=== PATIENT | male | born 1955 | race Caucasian/White ===

== ENCOUNTER 2020-09-01 22:58 | Inpatient (IN) | payer OTHER ==
[~2020-09-01] VITALS: Ht 175.3 cm; Wt 83.0 kg
--- NOTE | 2020-09-01 22:58 | NUR ---
PT BIBA TO BED 10.
[2020-09-01 23:00] VITALS: BP 141/53
--- NOTE | 2020-09-01 23:00 | NUR ---
65 Y/O MALE WITH A TRACH [place]SP[place] [facility] [place] PRESENTS TO THE ED WITH SOB. PT AGITATED. AOX2. INCREASED RR. PT O2 SATURATION AT 94% ON 15L OF O2 VIA NC BUT DESATS TO 90% ON 15L WHEN AGITATED. PT HAS A G-TUBE. SKIN IS PINK/WARM/DRY; HOB ELEVATED; BEDRAILS UP X2; BED DOWN. ER MD MADE AWARE OF PT STATUS. PMH: RESPIRATORY FAILURE, HTN, SEIZURE, DM2, HDL, TIA, SCHIZOPHRENIA ALLERGIES: NKA
[2020-09-01 23:41] LABS: BASOPHILS % (AUTO) 0.4 % (0.0-2.0); HEMATOCRIT 36.2 % (36-52); HEMOGLOBIN 11.8 g/dL (12.0-18.0); LYMPHOCYTES # (AUTO) 3.6 K/uL (2.0-11.5); LYMPHOCYTES % (AUTO) 46.1 % (20.5-51.1); MEAN CORPUSCULAR HEMOGLOBIN 28 pg (27-31); MEAN CORPUSCULAR HGB CONC 32 g/dL (33-37); MEAN CORPUSCULAR VOLUME 87.1 fL (80-94); MONOCYTES # (AUTO) 0.6 K/uL (0.8-1.0); MONOCYTES % (AUTO) 8.2 % (1.7-9.3); NEUTROPHILS # (AUTO) 3.6 K/uL (1.8-7.7); NEUTROPHILS % (AUTO) 45.3 % (42.2-75.2); PLATELET COUNT (AUTO) 210 K/uL (140-450); RED BLOOD CELL COUNT(AUTO) 4.16 MIL/uL (4.20-6.10); RED CELL DISTRIBUTION WIDTH 17.3 % (11.6-13.7); WHITE BLOOD COUNT (AUTO) 7.8 K/uL (4.8-10.8)
[2020-09-01 23:57] LABS: ALBUMIN 2.9 g/dL (3.4-5.0); CREATININE 0.8 mg/dL (0.6-1.3); TOTAL BILIRUBIN 0.2 mg/dL (0.0-1.0)
--- NOTE | 2020-09-02 00:15 | NUR ---
CRITICAL LAB VALUE LACTIC ACID 3.[address] FONG GAVE NO NEW ORDERS.
--- NOTE | 2020-09-02 00:23 | NUR ---
20 G IV SITE ESTABLISHED TO L WRIST. IV SITE WAS PATENT FLSUHED WITH 10 ML OF 0.9% NS. NO REDNESS, SWELLING OR DISCOMFORT NOTED.
--- NOTE | 2020-09-02 01:09 | NUR ---
PT WAS CHANGED AND REPOSITION AT THIS TIME. TOLERATED WELL.
--- NOTE | 2020-09-02 01:51 | NUR ---
LORENZA SWAB COLLECTED AT THIS TIME, WALKED TO LAB AND GIVEN TO CINDI LEONARD.
--- NOTE | 2020-09-02 01:53 | NUR ---
STRAIGHT CATH PT USING STERILE TECHNIQUE PER ER MD ORDERS. COLLECTED 60 ML OF CLOUDY YELLOW URINE. TOLERATED PROCEDURE WELL.
[2020-09-02 01:55] LABS: BILIRUBIN,URINE NEGATIVE (NEGATIVE); BLOOD, URINE 1+ (NEGATIVE); COLOR,URINE YELLOW (YELLOW); LEUKOCYTE ESTERASE ,URINE TRACE (NEGATIVE); NITRITE, URINE POSITIVE (NEGATIVE); PH,URINE 7.5 (5.0-9.0); UGLUCOSE NEGATIVE (NEGATIVE)
[2020-09-02 02:08] LABS: APPEARANCE,URINE SLIGHTLY HAZY (CLEAR)
[2020-09-02 02:09] LABS: RBC,URINE 11-20 (MOD) /HPF (0-5)
--- NOTE | 2020-09-02 02:14 | NUR ---
PT LAYING IN BED IN NO ACUTE DISTRESS NOTED ON 15 L OF OXYGEN VIA TRACH COLLAR. O2 SAT AT 96%.
[2020-09-02] MEDS ORDERED: OLAN2.5T1 PO (02:27)
[2020-09-02] MEDS ORDERED: INSU100S5 IJ (02:27)
[2020-09-02] MEDS ORDERED: LISI-487 GT (02:27)
[2020-09-02] MEDS ORDERED: ASCO500T95 GT (02:27)
[2020-09-02] MEDS ORDERED: OLAN2.5T1 GT (02:27)
[2020-09-02] MEDS ORDERED: KEP500L GT (02:27)
[2020-09-02] MEDS ORDERED: VALP-22 GT (02:27)
[2020-09-02] MEDS ORDERED: ATOR20TA GT (02:31)
[2020-09-02] MEDS ORDERED: LEVO0.155 GT (02:31)
[2020-09-02] MEDS ORDERED: ASPI-1884 GT (02:31)
--- NOTE | 2020-09-02 02:31 | NUR ---
MED[place] [facility] [place]
--- NOTE | 2020-09-02 03:09 | NUR ---
PT WAS CHANGED AND REPOSITION AT THIS TIME. TOLERATED WELL.
--- NOTE | 2020-09-02 03:57 | NUR ---
Patient will be admitted to care of DR. OWEN. Admited to TELEMETRY. Will go to room 123B. Belongings list completed. Report called to Darcy COBIAN.
--- NOTE | 2020-09-02 04:55 | NUR ---
RECEIVED REPORT FROM ER NURSE, TRINI. PT AOX2, VERBAL, CONFUSED, SCREAMING. HAS TRACH COLLAR CONNECTED TO 12L O2. NO S/S RESPIRATORY DISTRESS. IV SITE 20G L WRIST PATENT INTACT. BOWEL SOUNDS ACTIVE. LUNGS CLEAR. SKIN WARM DRY INTACT. BLACKENED TOENAILS TO BIG TOE ON LEFT FOOT AND 5TH DIGIT ON RIGHT FOOT. HAS GTUBE IN PLACE. VS: O2 SAT 93% HR 92 TEMP 99.1 RR 24 BP 154/68. DX HYPOXIA, ELEVATED TROPONIN. HX HTN, DM, CVA, HLD, SZ, THYROID DZ, RESP. FAILURE, SCHIZO. ORIENTED TO ROOM AND HOSPITAL. SAFETY MEASURES IN PLACE. CALL LIGHT WITHIN REACH. WILL CONTINUE TO MONITOR
[2020-09-02 05:00] VITALS: BP 154/68
--- NOTE | 2020-09-02 05:00 | NUR ---
PATIENT CONTINUOUSLY SCREAMING. REORIENTED PATIENT AND REASSURED PATIENT. APPEARS MORE CALM. NO S/S ACUTE DISTRESS NOTED. SAFETY MEASURES IN PLACE, SEIZURE PRECAUTION IN PLACE. CALL LIGHT WITHIN REACH. WILL CONTINUE TO MONITOR
--- NOTE | 2020-09-02 07:40 | NUR ---
ENDORSED PATIENT TO DAY RN FOR CONTINUITY OF CARE. PATIENT IS IN STABLE CONDITION
--- NOTE | 2020-09-02 07:41 | NUR ---
RECEIVED REPORT FROM DIE FITTER NURSE. PATIENT IN STABLE CONDITION.
[2020-09-02 08:00] VITALS: BP 124/55
[2020-09-02] MEDS ORDERED: HYDROcodone/APAP 7.5/325 MG 1 TAB PO PRN (08:50)
[2020-09-02] MEDS ORDERED: INSULIN LISPRO SLIDING SCALE 100 UNITS/ML VIAL SUBQ PRN (08:50)
[2020-09-02] MEDS ORDERED: ONDANSETRON 4 MG/2 ML VIAL IM/IVP PRN (08:50)
[2020-09-02] MEDS ORDERED: ACETAMINOPHEN 325 MG TAB PO PRN (08:50)
[2020-09-02] MEDS ORDERED: DOCUSATE SODIUM 100 MG GELCAP PO PRN (08:50)
[2020-09-02] MEDS ORDERED: POTASSIUM CHLORIDE 10 MEQ TABER PO PRN (08:50)
[2020-09-02] MEDS ORDERED: LEVOTHYROXINE 0.075 MG TAB GT SCH (09:00)
[2020-09-02] MEDS: VALPROIC ACID 250 MG/5 ML UDC GT SCH ×3 (09:19→16:31)
[2020-09-02] MEDS: OLANZapine 2.5 MG TAB PO SCH (09:22)
[2020-09-02] MEDS: ASCORBIC ACID 500 MG TAB GT SCH ×2 (09:23→20:51)
[2020-09-02] MEDS: lisinopriL 20 MG TAB GT SCH (09:28)
[2020-09-02] MEDS: ASPIRIN 81 MG TAB.CHEW GT SCH (09:28)
[2020-09-02] MEDS: levETIRAcetam 100 MG/ML ORASYR GT SCH ×2 (09:29→20:51)
[2020-09-02 09:33] LABS: PROTHROMBIN TIME 9.9 secs (10.8-13.4)
[2020-09-02 09:44] LABS: CHOL/HDL RATIO 3.5 (1-4.5); FREE T4 (FREE THYROXINE) 1.03 ng/dL (0.76-1.46); MAGNESIUM 1.7 mg/dL (1.8-2.4); PHOSPHORUS 1.7 mg/dL (2.5-4.9); THYROID STIMULATING HORMONE 5.56 uIU/mL (0.34-3.74)
--- NOTE | 2020-09-02 10:00 | NUR ---
SCHEDULED MEDICATIONS DUE GIVEN. WILL CONTINUE TO MONITOR.
[2020-09-02 12:00] VITALS: BP 132/58
--- NOTE | 2020-09-02 13:56 | NUR ---
SCHEDULED MEDICATIONS DUE GIVEN. WILL CONTINUE TO MONITOR.
[2020-09-02 16:00] VITALS: BP 145/68
--- NOTE | 2020-09-02 16:31 | NUR ---
SCHEDULED MEDICATIONS DUE GIVEN. WILL CONTINUE TO MONITOR.
--- NOTE | 2020-09-02 19:20 | NUR ---
GAVE REPORT TO WEB SEARCH EVALUATOR NURSE FOR CONTINUITY OF CARE. PATIENT IN STABLE CONDITION.
--- NOTE | 2020-09-02 19:22 | NUR ---
RECEIVED REPORT FROM TYLER ZACARIAS. PT SLEEPING IN BED ON 12L TRACH COLLAR TO TPIECE. NO S/S RESPIRATORY DISTRESS. IV SITE L WRIST 20G PATENT INTACT, S.L. G TUBE IN PLACE, PATENT INTACT. SAFETY MEASURES IN PLACE. CALL LIGHT WITHIN REACH. WILL CONTINUE TO MONITOR
[2020-09-02 20:00] VITALS: BP 120/67
[2020-09-02] MEDS ORDERED: DEXTROSE 50% 50 ML SYR IVP PRN (20:05)
[2020-09-02] MEDS: BLOOD GLUCOSE MONITORING 1 DEV DEV FS SCH (20:48)
[2020-09-02] MEDS: ATORVASTATIN 20 MG TAB GT SCH (20:51)
[2020-09-02] MEDS: OLANZapine 2.5 MG TAB GT SCH (20:52)
--- NOTE | 2020-09-02 21:03 | NUR ---
GTUBE RESIDUAL LESS THAN 10ML. ADMINISTERED SCHEDULED MEDICATIONS PER MD ORDERS. NO DISTRESS NOTED. SAFETY MEASURES IN PLACE. CALL LIGHT WITHIN REACH. WILL CONTINUE TO MONITOR
--- NOTE | 2020-09-02 22:45 | NUR ---
PATIENT ASLEEP IN BED. NO S/S ACUTE DISTRESS NOTED. CALL LIGHT WITHIN REACH. WILL CONTINUE TO MONITOR
[2020-09-03] VITALS: BP 146/59
--- NOTE | 2020-09-03 00:20 | NUR ---
CLEANED CHANGED REPOSITIONED PATIENT, HAD ONE MODERATE SOFT FORMED YELLOW-GREEN BOWEL MOVEMENT. TOLERATED WELL. NO DISTRESS NOTED. SAFETY MEASURES IN PLACE. CALL LIGHT WITHIN REACH. WILL CONTINUE TO MONITOR
--- NOTE | 2020-09-03 01:09 | NUR ---
PATIENT RESTING IN BED. DENIES DISCOMFORT, DENIES PAIN. RESPIRATIONS EVEN UNLABORED, NO S/S ACUTE DISTRESS NOTED. CALL LIGHT WITHIN REACH. WILL CONTINUE TO MONITOR
[2020-09-03 04:00] VITALS: BP 154/74
--- NOTE | 2020-09-03 05:00 | NUR ---
CLEANED CHANGED REPOSITIONED PATIENT, HAD ONE LARGE FORMED HARD LIGHT BROWN BOWEL MOVEMENT. TOLERATED WELL. NO DISTRESS NOTED. SAFETY MEASURES IN PLACE. CALL LIGHT WITHIN REACH. WILL CONTINUE TO MONITOR
[2020-09-03] MEDS: LEVOTHYROXINE 0.075 MG TAB GT SCH (05:50)
[2020-09-03 05:58] LABS: BASOPHILS % (AUTO) 0.3 % (0.0-2.0); HEMATOCRIT 34.1 % (36-52); HEMOGLOBIN 11.1 g/dL (12.0-18.0); LYMPHOCYTES # (AUTO) 3.1 K/uL (2.0-11.5); LYMPHOCYTES % (AUTO) 39.9 % (20.5-51.1); MEAN CORPUSCULAR HEMOGLOBIN 29 pg (27-31); MEAN CORPUSCULAR HGB CONC 33 g/dL (33-37); MEAN CORPUSCULAR VOLUME 87.3 fL (80-94); MONOCYTES # (AUTO) 0.7 K/uL (0.8-1.0); MONOCYTES % (AUTO) 8.8 % (1.7-9.3); NEUTROPHILS # (AUTO) 3.9 K/uL (1.8-7.7); PLATELET COUNT (AUTO) 165 K/uL (140-450); RED BLOOD CELL COUNT(AUTO) 3.91 MIL/uL (4.20-6.10); RED CELL DISTRIBUTION WIDTH 17.3 % (11.6-13.7); WHITE BLOOD COUNT (AUTO) 7.7 K/uL (4.8-10.8)
[2020-09-03] MEDS: BLOOD GLUCOSE MONITORING 1 DEV DEV FS SCH ×4 (06:01→20:42)
--- NOTE | 2020-09-03 06:02 | NUR ---
ADMINISTERED SCHEDULED MEDICATION. BLOOD SUGAR 101, NO INSULIN COVERAGE NEEDED PER SLIDING SCALE. NO DISTRESS NOTED. SAFETY MEASURES IN PLACE. CALL LIGHT WITHIN REACH. WILL CONTINUE TO MONITOR
[2020-09-03 06:54] LABS: ANION GAP 8.1 (8-16); CARBON DIOXIDE 34.9 mmol/L (21-32); CREATININE 0.6 mg/dL (0.6-1.3)
[2020-09-03 07:06] LABS: T4 (THYROXINE) 10.2 ug/dL (4.5-12.0)
--- NOTE | 2020-09-03 07:20 | NUR ---
ENDORSED PATIENT TO DAY RN FOR CONTINUITY OF CARE. PATIENT IS IN STABLE CONDITION
--- NOTE | 2020-09-03 07:21 | NUR ---
RECEIVED ENDORSEMENT FROM PLATEN DRIER OPERATOR RN FOR CONTINUITY OF CARE. PT IS STABLE RESTING WITH EYES CLOSED. SPO2 90% ON 12L TRACH COLLAR. PER PLATEN DRIER OPERATOR RN 90% BASELINE
[2020-09-03 08:00] VITALS: BP 159/66
--- NOTE | 2020-09-03 08:21 | NUR ---
PATIENT HAS BEEN SCREENED AND CATEGORIZED HIGH NUTRITION RISK. PATIENT WILL BE SEEN WITHIN 1-2 DAYS OF ADMISSION. 09/02/20 - 09/03/20 MARGUERITE BUCIO MBA, RD
--- NOTE | 2020-09-03 09:00 | NUR ---
SCHEDULED MEDICATION GIVEN VIA GT. TOLERATED WELL. PT WAS ASSISTED WITH FEEDING HOWEVER DISLIKED FOOD. SUBSTITUTES WERE OFFERED AND REFUSED. PT IS ABLE TO COMMUNICATE FOR THE MOST PART, DIFFICULT TO UNDERSTAND AT TIMES. LUNG SOUNDS DIMINISHED. ABD IS FLAT, SOFT AND NONTENDER WITH ACTIVE BS. PT SUCTIONED NEEDED WILL FLUCTUATE FROM MID 80'S BACK UP TO MID 90'S. HOB ELEVATED ALL NEEDS MET AT THIS TIME. HAS IV ACCESS TO LEFT WRIST. WILL CONTINUE WITH POC.
[2020-09-03] MEDS: ASPIRIN 81 MG TAB.CHEW GT SCH (09:06)
[2020-09-03] MEDS: VALPROIC ACID 250 MG/5 ML UDC GT SCH ×3 (09:07→16:38)
[2020-09-03] MEDS: ASCORBIC ACID 500 MG TAB GT SCH ×2 (09:07→20:32)
[2020-09-03] MEDS: levETIRAcetam 100 MG/ML ORASYR GT SCH ×2 (09:07→20:32)
[2020-09-03] MEDS: OLANZapine 2.5 MG TAB PO SCH (09:08)
[2020-09-03] MEDS: lisinopriL 20 MG TAB GT SCH (09:08)
[2020-09-03] MEDS: POTASSIUM CHLORIDE 20% 40 MEQ/15 ML UDC GT PRN (10:14)
--- NOTE | 2020-09-03 10:15 | NUR ---
RECEIVED PHONE CALL FROM RADIOLOGY REGARDING IV ACCESS FOR CONTRAST ACCORDING TO DEPARTMENT THEY NEED A 20G IV ACCESS TO AC AND PATIENT CURRENTLY HAS 20G TO WRIST. NEW IV ACCESS STARTED TO RIGHT AC 20G. AND GIVEN POTASSIUM SUPPLEMENT FOR LOW K. TOLERATED WELL.
--- NOTE | 2020-09-03 11:55 | NUR ---
PT PICKED UP BY RADIOLOGY DEPARTMENT FOR CT. PT IS AWAKE REMAINS ON 12 L TRACH COLLAR TRANSPORTED WITH RT. HAND OFF REPORT GIVEN . Addendum: 09/03/20 at 1233 by Svetlana Bauman RN PROVISION OF CARE PROVIDED PRIOR TO ROLLER SKATE REPAIRER
[2020-09-03 12:00] VITALS: BP 129/62
--- NOTE | 2020-09-03 12:32 | NUR ---
PT RETURNED FROM CT AT 1215 PT IS AWAKE NO CHANGES IN ASSESSMENT. BS 97 NO COVERAGE NEEDED. SCHEDULED MEDICATION GIVEN TOLERATED WELL ALL NEEDS MET.
--- NOTE | 2020-09-03 13:28 | NUR ---
09/03/20 RD INITIAL ASSESSMENT COMPLETED. PLEASE REFER TO NUTRITION ASSESSMENT UNDER CARE ACTIVITY FOR ESTIMATED NUTRITIONAL NEEDS. RD RECOMMENDATIONS : 1. RECOMMEND CONTINUE CARDIAC MECHANICAL SOFT DIET 2. ADD DIET HEALTHSHAKES TID WITH MEALS (TO HELP MEET ESTIMATED ENERGY & PROTEIN NEEDS) 3. ENCOURAGE INCREASED PO INTAKE 4. F/UP 2-3 DAYS; HIGH RISK MARGUERITE BUCIO MBA, RD
--- NOTE | 2020-09-03 14:25 | NUR ---
RESTING IN BED WITH EYES CLOSED SPO2 93%
[2020-09-03 16:00] VITALS: BP 134/54
--- NOTE | 2020-09-03 16:34 | NUR ---
BS 119 NO COVERAGE NEEDED, SCHEDULE MEDICATION GIVEN WITH NO ISSUES. RESTING IN BED CONTINUES TO GET SUCTIONED PRN.
--- NOTE | 2020-09-03 18:14 | NUR ---
RESTING IN BED WITH EYES CLOSED REMAINS ON TRACH COLLAR 12L SPO2 92%
--- NOTE | 2020-09-03 19:18 | NUR ---
PT ENDORSED TO GOLF COURSE PATROLLER RN FOR CONTINUITY OF CARE. PT IS STABLE. REMAINS ON 12L TRACH COLLAR SPO2 93% AT THIS TIME. IN NO DISTRESS. POC DISCUSSED.
[2020-09-03 20:00] VITALS: BP 159/77
[2020-09-03] MEDS: ATORVASTATIN 20 MG TAB GT SCH (20:31)
[2020-09-03] MEDS: OLANZapine 2.5 MG TAB GT SCH (20:31)
[2020-09-03] MEDS ORDERED: CRUSHER, PILL MC ONE (20:33)
[2020-09-04] VITALS: BP 124/65
[2020-09-04 04:00] VITALS: BP 145/84
[2020-09-04] MEDS: LEVOTHYROXINE 0.075 MG TAB GT SCH (05:33)
--- NOTE | 2020-09-04 05:48 | NUR ---
ADMINISTERED 0630H MEDICATION PER ORDERED
[2020-09-04 05:54] LABS: ANION GAP 8.6 (8-16); CARBON DIOXIDE 33.6 mmol/L (21-32); CREATININE 0.6 mg/dL (0.6-1.3); POTASSIUM 3.2 mmol/L (3.5-5.1)
[2020-09-04 06:06] LABS: BASOPHILS # (AUTO) 0.1 K/uL (0.00-0.22); BASOPHILS % (AUTO) 0.7 % (0.0-2.0); HEMATOCRIT 34.1 % (36-52); LYMPHOCYTES # (AUTO) 3.2 K/uL (2.0-11.5); LYMPHOCYTES % (AUTO) 41.5 % (20.5-51.1); MEAN CORPUSCULAR HEMOGLOBIN 29 pg (27-31); MEAN CORPUSCULAR HGB CONC 32 g/dL (33-37); MEAN CORPUSCULAR VOLUME 88.2 fL (80-94); MONOCYTES # (AUTO) 0.8 K/uL (0.8-1.0); MONOCYTES % (AUTO) 9.9 % (1.7-9.3); NEUTROPHILS # (AUTO) 3.7 K/uL (1.8-7.7); NEUTROPHILS % (AUTO) 47.9 % (42.2-75.2); PLATELET COUNT (AUTO) 159 K/uL (140-450); RED BLOOD CELL COUNT(AUTO) 3.87 MIL/uL (4.20-6.10); RED CELL DISTRIBUTION WIDTH 17.6 % (11.6-13.7); WHITE BLOOD COUNT (AUTO) 7.6 K/uL (4.8-10.8)
[2020-09-04] MEDS: BLOOD GLUCOSE MONITORING 1 DEV DEV FS SCH ×4 (06:31→21:06)
--- NOTE | 2020-09-04 06:31 | NUR ---
BLOOD GLUCOSE 95
--- NOTE | 2020-09-04 07:25 | NUR ---
RECEIVED BEDSIDE REPORT FROM WALL TAPER HELPER NURSE. PATIENT SUPINE IN BED, ALERT, ANSWERS TO NAME. BREATHING EVEN AND UNLABORED, NO SINGS OF ACUTE DISTRESS NOTED. SPO2 94%, ON AEROSOL DIFFUSER 12 L, FIO2 55%. G TUBE IN PLACE, FOR MEDICATIONS. PATIENT ON MECHANICAL SOFT CARDIAC DIET. DIAPER IN PLACE FOR INCONTINENCE. L WRIST 20G, R AC 20G INFUSING NS @ 10 ML/HR. PLOWING GARDENS IN PLACE, SAFETY MEASURES IN PLACE.
--- NOTE | 2020-09-04 07:25 | NUR ---
ENDORSED TO DAY SHIFT RN FOR CONTINUITY OF CARE
[2020-09-04 08:00] VITALS: BP 153/63
--- NOTE | 2020-09-04 08:42 | NUR ---
PT. WITH LOW AFUA SCALE AT HIGH RISK, CONTINUE TO FOLLOW PRESSURE INJURY PREVENTION INTERVENTIONS. -TURN AND REPOSITION PATIENT Q 2H -ASSESS AND MONITOR SKIN CONDITION DURING POSITION CHANGE -OFFLOAD BILATERAL HEELS BY PLACING PILLOWS UNDER CALVES AT ALL TIMES, UNLESS OTHERWISE CONTRAINDICATED -PRESSURE REDISTRIBUTION BY PLACING PILLOWS AND OFFLOADING SACRALCOCCYX -KEEP SKIN CLEAN AND DRY AT ALL TIMES.
[2020-09-04] MEDS: ASPIRIN 81 MG TAB.CHEW GT SCH (08:54)
[2020-09-04] MEDS: VALPROIC ACID 250 MG/5 ML UDC GT SCH ×3 (08:54→17:03)
[2020-09-04] MEDS: ASCORBIC ACID 500 MG TAB GT SCH ×2 (08:55→21:05)
[2020-09-04] MEDS: lisinopriL 20 MG TAB GT SCH (08:56)
[2020-09-04] MEDS: OLANZapine 2.5 MG TAB PO SCH (08:56)
[2020-09-04] MEDS: levETIRAcetam 100 MG/ML ORASYR GT SCH ×2 (09:05→21:05)
--- NOTE | 2020-09-04 09:05 | NUR ---
ADMINISTERED SCHEDULED AM MEDS PER MD ORDER. MED EDUCATION PROVIDED, REINFORCEMENT NEEDED. G TUBE RESIDUAL 5 ML, FLUSHED BEFORE AND AFTER MEDS. OVEN BUILDER IN PLACE, SAFETY MEASURES IN PLACE.
[2020-09-04] MEDS: POTASSIUM CHLORIDE 20% 40 MEQ/15 ML UDC GT PRN (09:14)
--- NOTE | 2020-09-04 10:48 | NUR ---
SOCIAL WORK NOTE: Patient's Orientation Unable To Assess Information Provided By NORMA - PIERCE Comments SW WAS UNABLE TO MEET PATIENT AT BEDSIDE. SW CONTACTED PATIENT'S SISTER AND LEFT VM. SW COMPLET[place] ASSESSMENT [place] [facility] [place]. Tile Roofer, Realtionship and Phone Number HENRY MARCIAL SISTER [phone] STELLA ALVARADO [phone] Healthcare Power of Cableman No Does Patient Have a POLST No Identifying Problems No Social Work Triggers Is A Social Work Consult Needed No Mandate Report Filed No Explanation Of Identifying Problems PATIENT IS A 65-YEAR-OLD MALE ADMITTED FOR HYPOXIA AND ELEVATED TROP. PATIENT HAS PMHX OF CEREBROVASCULAR ACCIDE, DIABETES, HYPERTENSION, SEIZURE, AND THYROID DISEASE. Admitted From [facility] Facility [facility] - [phone] Pre-Admission Level Of Functioning Status Total Care Level Of Functioning Comment NORMA STATED PATIENT REQUIRES TOTAL ASSISTANCE. Prior Resources/Services Used In Last 12 Months SNF [facility] Prior Resources/Service Comments PER NORMA, PATIENT IS PENITENTIARY AND ON A BED HOLD. Prior DME Wheelchair Dialysis Comments N/A Patient Had Caregiver No Home Support No Caregiver Issues Financial Issues No Known Financial Issue Referral To The Financial Counselor Needed No Factors/Needs No D/C Needs Identified Pt/Rep Participated In Discharge Plan Yes Patient/Family Agress With Discharge Plan Yes Discharge Plan Comments TENTATIVE DISCHARGE PLAN IS FOR PATIENT TO RETURN HOME. DC Plan Status Initiated
[2020-09-04] MEDS: LORazepam 2 MG/ML VIAL IM/IVP PRN (11:07)
--- NOTE | 2020-09-04 11:10 | NUR ---
PRN ATIVAN ADMINISTERED PER MD ORDER FOR PATIENT AGITATION. MED EDUCATION PROVIDED, REINFORCEMENT NEEDED. REHAB THERAPY MANAGER AT BEDSIDE PROVIDING HYGIENE CARE AT THIS TIME.
--- NOTE | 2020-09-04 11:20 | NUR ---
PATIENT REPOSITIONED AND OFFLOADED PRESSURE WITH PILLOWS, WITH FINANCE BROKER HELP. CHANGED ALL DIRTY LINEN. COIL CLEANER IN PLACE, SAFETY MEASURES IN PLACE.
--- NOTE | 2020-09-04 11:26 | NUR ---
BLOOD GLUCOSE CHECKED, 150, NO INSULIN COVERAGE NECESSARY. COMMUNICATIONS ADVISOR IN PLACE, SAFETY MEASURES IN PLACE.
[2020-09-04 12:00] VITALS: BP 138/64
--- NOTE | 2020-09-04 14:21 | NUR ---
ADMINISTERED SCHEDULED MEDS PER MD ORDER. MED EDUCATION PROVIDED, REINFORCEMENT NEEDED. G TUBE FLUSHED BEFORE AND AFTER MEDS. ANTIBIOTIC WITH ALL NEW TUBING SET UP. PATIENT REPOSITIONED AND OFFLOADED PRESSURE WITH PILLOWS. AQUATICS COORDINATOR IN PLACE. SAFETY MEASURES IN PLACE.
[2020-09-04 16:00] VITALS: BP 132/62
--- NOTE | 2020-09-04 16:13 | NUR ---
DC PLANNIN YRS OLD MALE PATIENT WAS ADMITTED FROM [facility] [place] WITH A DX OF HYPOXIA ELEVATED TROPONIN. PT HAS A HX OF DM, CVA, HTN, SEIZURE DISORDER, CHRONIC RESP FAILURE WITH TRACH IN PLACE AND SCHIZOPHRENIA.CXRAY SHOWED NO ACUTE CARDIOPULMONARY DISEASE . RAPID COVID TEST NEGATIVE. ADMINISTERED IVF, IV ABX AND CONTINUED HOME MEDS. CONSULTED WITH [facility] DIRECTOR FOR ELEVATED TROPONIN, PULMO AND PSYCH DR HIGH FOR SCHIZOPHRENIA. DC PLAN TO GO BACK TO [facility] [place] WHEN STABLE CM TO FOLLOW Addendum: 09/06/20 at 1041 by Helena Fiore CM DC MAORI PHYSIOTHERAPIST: PATIENT WILL DC BACK TO [facility] [place] TODAY. FAXED PATIENTS PACKET, PENDING BED NUMBER. SET UP WILL CALL TRANSPORTATION WITH [facility] [phone]. WILL ACTIVATE ONCE I HAVE THE BED NUMBER. CALLED PATIENTS SISTER HENRY MARCIAL [phone] TO NOTIFY HER THAT PATIENT WILL DC BACK TO [facility] [place] TODAY AND DISCUSSED RIGHTS OF MEDICARE. Addendum: 09/06/20 at 1415 by Helena Fiore CM AMANDA MAORI PHYSIOTHERAPIST [facility] WAS NOT ABLE TO TRANSPORT PATIENT. ARRANGED TRANSPORTATION WITH [facility] FOR 6:00 PM. NOTIFIED MANGO BARRY AND EROS AT [facility]
--- NOTE | 2020-09-04 17:00 | NUR ---
BLOOD GLUCOSE CHECKED, 140, NO INSULIN COVERAGE NECESSARY.
--- NOTE | 2020-09-04 17:06 | NUR ---
ADMINISTERED SCHEDULED MEDS PER MD ORDER. MED EDUCATION PROVIDED, REINFORCEMENT NEEDED. G TUBE FLUSHED BEFORE AND AFTER MEDS. PATIENT REORIENTED, REPOSITIONED AND OFFLOADED PRESSURE WITH PILLOWS. LUBRICATION TECHNICIAN IN PLACE. SAFETY MEASURES IN PLACE.
--- NOTE | 2020-09-04 19:11 | NUR ---
ENDORSED PATIENT TO SPECIAL CERTIFICATE DICTATOR NURSE FOR CONTINUITY OF CARE. PATIENT STABLE AT THIS TIME.
--- NOTE | 2020-09-04 19:12 | NUR ---
RECEIVING PATIENT FROM AM NURSE FOR CONTINUITY OF CARE. PATIENT IS ON TELE MONITOR. PATIENT IS AWAKE, ALERT TO NAME. RESPIRATORY EVEN AND UNLABORED, ON AEROSOL DIFFUSER 12L, FIO2 55%, O2 SAT 93%, NO SIGN OF DISTRESS NOTED. SKIN WARM, DRY, NON-DIAPHORETIC. IV ON LEFT WRIST 20G, RIGHT AC 20G TKO. G-TUBE IN PLACE, FOR MEDICATION ONLY. PATIENT ON MECHANICAL SOFT CARDIAC DIET. DIAPER IN PLACE FOR INCONTINENCE. PLAN OF CARE DISCUSS. PRECAUTION IN PLACE. HOB ELEVATED. CALL LIGHT WITHIN REACH. WILL CONTINUE TO MONITOR.
--- NOTE | 2020-09-04 19:45 | NUR ---
ENDORSED PATIENT TO VOICE OVER ANNOUNCER NURSE FOR CONTINUITY OF CARE. PATIENT STABLE AT THIS TIME. Addendum: 09/04/20 at 1945 by Lisa Zamora RN RN ENDORSEMENT DONE AT 1910.
[2020-09-04 20:00] VITALS: BP 138/75
[2020-09-04] MEDS: OLANZapine 2.5 MG TAB GT SCH (21:05)
[2020-09-04] MEDS: ATORVASTATIN 20 MG TAB GT SCH (21:05)
--- NOTE | 2020-09-04 21:06 | NUR ---
BLOOD SUGAR CHECK 93, NO INSULIN GIVEN. SCHEDULE MEDICATION GIVEN VIA G-TUBE, PATIENT EDUCATED. PRECAUTION IN PLACE. HOB ELEVATED. CALL LIGHT WITHIN REACH. WILL CONTINUE TO MONITOR.
--- NOTE | 2020-09-04 23:10 | NUR ---
EFFICIENCY ANALYST AT BEDSIDE TO CHANGE AND TURN PATIENT. PATIENT IS ANXIOUS. ABLE TO FOLLOW COMMANDS. NO SIGN OF DISTRESS NOTED. HOB ELEVATED. CALL LIGHT WITHIN REACH. WILL CONTINUE TO MONITOR.
[2020-09-05] VITALS: BP 151/66
--- NOTE | 2020-09-05 | NUR ---
ROUND CHECK. PATIENT IS SLEEPING, CHEST RISE AND FALL NOTED. NO SIGN OF RESPIRATORY DISTRESS, O2 SAT 96%. HOB ELEVATED. PRECAUTION IN PLACE. CALL LIGHT WITHIN REACH. WILL CONTINUE TO MONITOR.
--- NOTE | 2020-09-05 02:00 | NUR ---
ROUND CHECK. PATIENT IS SLEEPING, CHEST RISE AND FALL NOTED. NO SIGN OF DISTRESS NOTED. HOB ELEVATED. PRECAUTION IN PLACE. CALL LIGHT WITHIN REACH. WILL CONTINUE TO MONITOR.
[2020-09-05 04:00] VITALS: BP 132/81
--- NOTE | 2020-09-05 04:00 | NUR ---
ASSIST PAINTER MIRROR TO CHANGE AND RE-POSITION PATIENT. PATIENT TOLERATED WELL. NO SIGN OF DISTRESS NOTED. HOB ELEVATED. CALL LIGHT WITHIN REACH. WILL CONTINUE TO MONITOR.
[2020-09-05 05:57] LABS: BASOPHILS % (AUTO) 0.2 % (0.0-2.0); HEMATOCRIT 33.2 % (36-52); HEMOGLOBIN 10.7 g/dL (12.0-18.0); LYMPHOCYTES # (AUTO) 2.5 K/uL (2.0-11.5); MEAN CORPUSCULAR HEMOGLOBIN 29 pg (27-31); MEAN CORPUSCULAR HGB CONC 32 g/dL (33-37); MEAN CORPUSCULAR VOLUME 88.3 fL (80-94); MONOCYTES # (AUTO) 0.7 K/uL (0.8-1.0); MONOCYTES % (AUTO) 9.5 % (1.7-9.3); NEUTROPHILS # (AUTO) 4.4 K/uL (1.8-7.7); NEUTROPHILS % (AUTO) 57.3 % (42.2-75.2); PLATELET COUNT (AUTO) 147 K/uL (140-450); RED BLOOD CELL COUNT(AUTO) 3.76 MIL/uL (4.20-6.10); RED CELL DISTRIBUTION WIDTH 17.4 % (11.6-13.7); WHITE BLOOD COUNT (AUTO) 7.6 K/uL (4.8-10.8)
[2020-09-05 06:00] LABS: ANION GAP 5.1 (8-16); CARBON DIOXIDE 34.4 mmol/L (21-32); CREATININE 0.6 mg/dL (0.6-1.3); POTASSIUM 3.5 mmol/L (3.5-5.1)
[2020-09-05] MEDS: LEVOTHYROXINE 0.075 MG TAB GT SCH (06:18)
--- NOTE | 2020-09-05 06:18 | NUR ---
SCHEDULE MEDICATION GIVEN, EDUCATION GIVEN. PATIENT TOLERATED WELL. HOB ELEVATED. CALL LIGHT WITHIN REACH. WILL CONTINUE TO MONITOR.
[2020-09-05] MEDS: BLOOD GLUCOSE MONITORING 1 DEV DEV FS SCH ×4 (06:24→21:31)
--- NOTE | 2020-09-05 06:24 | NUR ---
BLOOD SUGAR CHECK 105. NO INSULIN COVER NEEDED.
--- NOTE | 2020-09-05 07:19 | NUR ---
ENDORSED PATIENT TO AM NURSE FOR CONTINUITY OF CARE. PATIENT IS STABLE.
--- NOTE | 2020-09-05 07:20 | NUR ---
RECEIVED PATIENT FROM NIGHT NURSE. PATIENT IN BED AWAKE, RESPONDING TO NAME. RESP EVEN AND UNLABORED ON TRACH TO 12L AEROSOL. NO NOTED DISTRESS AT THIS TIME. PATIENT ABLE TO EAT, FEEDER REQUIRES TO ASSIST WITH MEALS. REDIRECTING REQUIRES, PATIENT ABLE TO FOLLOW SIMPLE COMMANDS. LW 20TKO, RAC 20G SL. HOB ELEVATED. SAFETY MEASURES IN PLACE. CALL LIGHT WITHIN REACH. WILL CONTINUE TO MONITOR.
[2020-09-05 08:00] VITALS: BP 155/71
[2020-09-05] MEDS: levETIRAcetam 100 MG/ML ORASYR GT SCH ×2 (08:14→21:31)
[2020-09-05] MEDS: VALPROIC ACID 250 MG/5 ML UDC GT SCH ×3 (08:14→16:11)
[2020-09-05] MEDS: ASCORBIC ACID 500 MG TAB GT SCH ×2 (08:14→21:32)
[2020-09-05] MEDS: ASPIRIN 81 MG TAB.CHEW GT SCH (08:15)
[2020-09-05] MEDS: lisinopriL 20 MG TAB GT SCH (08:15)
[2020-09-05] MEDS: OLANZapine 2.5 MG TAB PO SCH (08:15)
--- NOTE | 2020-09-05 08:49 | NUR ---
MORNING ROUTINE MEDICATIONS GIVEN VIA GTUBE. RESIDUAL CHECK LESS THAN 10ML AT THIS TIME. PATIENT ABLE TO SWALLOW AND WAS ASSISTED WITH BREAKFAST BY SQL SERVER DEVELOPER. PATIENT TOLERATED WELL. NO NOTED ACUTE S/S DISTRESS AT THIS TIME. CALL LIGHT WITHIN REACH. WILL CONTINUE TO MONITOR.
--- NOTE | 2020-09-05 09:36 | NUR ---
CHANGED WATER BOTTLE AND PT IS SLEEPING WITH NO SIGNS OF DISTRESS NOTED AT THIS TIME
--- NOTE | 2020-09-05 10:28 | NUR ---
PATIENT IN BED AWAKE AND ALERT. RESP EVEN AND UNLABORED ON TRACH TO OXYGEN. NO ACUTE S/S DISTRESS. CALL LIGHT WITHIN REACH. WILL CONTINUE TO MONITOR.
[2020-09-05 12:00] VITALS: BP 153/71
--- NOTE | 2020-09-05 12:00 | NUR ---
BLOOD SUGAR 148, NO INSULIN COVERAGE PER SLIDING SCALE. PATIENT IN BED SLEEPING, CHEST NOTED RISING. NO ACUTE S/S DISTRESS. RESP EVEN AND UNLABORED ON TRACH TO OXY 12L. CALL LIGHT WITHIN REACH. WILL CONTINUE TO MONITOR.
[2020-09-05] MEDS ORDERED: MAG SULF 2000 MG/WATER PREMIX 50 ML IV SCH (14:30)
--- NOTE | 2020-09-05 14:56 | NUR ---
DR HO MADE AWARE OF POSITIVE URINE CULTURE SENSITIVITY. RECEIVED TELEPHONE ORDERS FOR PHYSICIAN CONSULT WITH DR LEONARD, AND GIVE LEVAQUIN 500MG IV DAILY. ORDERS READ BACK CONFIRMED AND CARRIED OUT. WILL CONTINUE TO MONITOR. Addendum: 09/05/20 at 1458 by Alexis Mcmillan RN DR LEONARD IN HOUSE MADE AWARE, RECEIVED ORDER TO D/C ELIZABETH. ORDER CARRIED OUT.
[2020-09-05] MEDS: LEVOFLOXACIN 500 MG/D5W PREMIX 100 ML IV SCH (15:55)
[2020-09-05 16:00] VITALS: BP 140/74
--- NOTE | 2020-09-05 16:23 | NUR ---
BLOOD SUGAR 148, NO INSULIN PROVIDED PER SLIDING SCALE. ROUTINE MEDICATION GIVEN. PATIENT TOLERATED WELL. RESP EVEN AND UNLABORED ON 12L TRACH TO OXY, O2SAT 96%. NO NOTED DISTRESS. CALL LIGHT WITHIN REACH. WILL CONTINUE TO MONITOR.
--- NOTE | 2020-09-05 17:44 | NUR ---
PATIENT IN BED SLEEPING, CHEST NOTED RISING. NO NOTED DISTRESS. CALL LIGHT WITHIN REACH. WILL CONTINUE TO MONITOR.
--- NOTE | 2020-09-05 19:25 | NUR ---
ENDORSED PATIENT TO NIGHT NURSE. PATIENT IN STABLE CONDITION.
[2020-09-05 20:00] VITALS: BP 122/63
--- NOTE | 2020-09-05 20:00 | NUR ---
RECEIVED PATIENT AWAKE, ALERT,ORIENTEDX2. PATIENT LAYING IN BED NOT IN ANY DISTRESS. PT HAS TRACH ON 12L OXYGEN,AND FiO2 60% COOL AEROSOL MIST WITH SPO2 OF 93%. PATIENT HAS WHITE THIN SECRETIONS, SUCTIONED NEEDED. OTHERWISE VSS, TEMP- 100.2, SATING 93% ON TRACH ON 12L /O2. SINUS TACHYCARDIA ON HONING MACHINE OPERATOR TOOL, HR-103. CALL LIGHT [facility] REACH. WILL CONTINUE POC AND MONITORING.
--- NOTE | 2020-09-05 20:10 | NUR ---
PT SEEN AND ASSESSED. PT IS AWAKE AND ALERT. PT TRACH WITH PORTEX SIZE 8. FOUND PT ON 12L,AND FiO2 60% COOL AEROSOL MIST WITH SPO2 OF 93%. AUSCULTATION REVEALS COARSE BILATERAL BREATH SOUNDS. NO NOTED RESPIRATORY DISTRESS AT THIS TIME. SUCTIONED SCANT WHITE THIN SECRETIONS. WILL CONTINUE TO MONITOR PT.
[2020-09-05] MEDS: OLANZapine 2.5 MG TAB GT SCH (21:31)
[2020-09-05] MEDS: LACTULOSE 20 GM/30 ML UDC PO SCH (21:31)
[2020-09-05] MEDS: ATORVASTATIN 20 MG TAB GT SCH (21:32)
--- NOTE | 2020-09-05 22:00 | NUR ---
ADMINISTERED ALL THE SCHEDULED MEDICATIONS ORDERED AND PT TOLERATED IT WELL. NO ADVERSE DRUG REACTION NOTED. NO COMPLAIN FROM THE PATIENT.
[2020-09-05] MEDS: LORazepam 2 MG/ML VIAL IM/IVP PRN (22:08)
[2020-09-06] VITALS: BP 128/89
--- NOTE | 2020-09-06 | NUR ---
VITAL SIGNS STABLE,AFEBRILE, SATING 96% ON 12L/TRACH COLLAR . ST ON PASSENGER BRAKEMAN, HR-109. NO COMPLAIN OF PAIN AT THIS TIME.
[2020-09-06 02:00] VITALS: BP 128/89
--- NOTE | 2020-09-06 02:00 | NUR ---
PATIENT REMAINS AWAKE AND TALKING OFF AND ON MOST OF THE TIME. NOT IN ANY DISTRESS. NO COMPLAIN AT THIS TIME. CALL LIGHT WITHIN REACH.
[2020-09-06 04:00] VITALS: BP 158/76
--- NOTE | 2020-09-06 04:00 | NUR ---
VITAL SIGNS STABLE,AFEBRILE, SATING 94% ON COLLAR TRACH, 12L O2. ST ON SHOULDER PAD MOLDER, HR-124. NO COMPLAIN OF PAIN AT THIS TIME. NO SIGN AND SYMPTOMS OF DISTRESS NOTED.
[2020-09-06] MEDS: LEVOTHYROXINE 0.075 MG TAB GT SCH (06:17)
[2020-09-06] MEDS: BLOOD GLUCOSE MONITORING 1 DEV DEV FS SCH ×3 (06:18→17:04)
--- NOTE | 2020-09-06 06:55 | NUR ---
PATIENT STABLE. NO ACUTE EVENTS THROUGHOUT THE NIGHT. PATIENT IS NOT IN ANY DISTRESS. NO COMPLAIN AT THIS TIME. ALL NEEDS ATTENDED. CALL LIGHT WITHIN REACH. WILL ENDORSE THE PT TO THE ONCOMING RN FOR CONTINUITY OF CARE.
--- NOTE | 2020-09-06 07:20 | NUR ---
RECEIVED REPORT FROM MIDDLEWARE SYSTEMS ARCHITECT RN FOR CONTINUITY OF CARE. PATIENT ASLEEP IN BED IN SUPINE POSITION. TRACH TO COLLAR 12L O2. O2 SAT 94%. SKIN WARM AND DRY, INTACT, LOW AFUA SCORE, HIGH RISK FOR SKIN BREAKDOWN, INCONTINENT WITH BOWEL AND BLADDER. IV TO LEFT WRIST 20G AND RIGHT AC 20G SALINE LOCK. SAFETY MEASURES IN PLACE, WILL CONTINUE TO MONITOR.
[2020-09-06 08:00] VITALS: BP 134/68
[2020-09-06] MEDS: ASPIRIN 81 MG TAB.CHEW GT SCH (08:43)
[2020-09-06] MEDS: lisinopriL 20 MG TAB GT SCH (08:44)
[2020-09-06] MEDS: VALPROIC ACID 250 MG/5 ML UDC GT SCH ×3 (08:44→17:04)
[2020-09-06] MEDS: levETIRAcetam 100 MG/ML ORASYR GT SCH (08:44)
[2020-09-06] MEDS: ASCORBIC ACID 500 MG TAB GT SCH (08:44)
[2020-09-06] MEDS: LACTULOSE 20 GM/30 ML UDC PO SCH (08:45)
[2020-09-06] MEDS: OLANZapine 2.5 MG TAB PO SCH (08:45)
--- NOTE | 2020-09-06 08:45 | NUR ---
SCHEDULED MEDICATIONS GIVEN VIA G TUBE. HOB ELEVATED, FLUSH PROTOCOL FOLLOWED. PATIENT'S O2 SAT 95%. HR 80.
[2020-09-06] MEDS ORDERED: ROCEPHIN IV (10:04)
--- NOTE | 2020-09-06 11:34 | NUR ---
BS 106. NO INSULIN COVERAGE NEEDED. PT ASLEEP. WILL CONTINUE TO MONITOR.
[2020-09-06 12:00] VITALS: BP 112/59
--- NOTE | 2020-09-06 13:44 | NUR ---
REPORT GIVEN TO NIDIA/HEAVEN OF [facility]. INFORMED CONTINUE WITH 2 MORE DAYS OF IV ANTIBIOTIC ROCEPHIN. NIDIA WANTED TO KEEP BOTH IV SITE.
--- NOTE | 2020-09-06 13:47 | NUR ---
REACHED OUT DISCHARGE PLANER DANNI REGARDING THE AMBULANCE SHIP JOINER TIME. NOT SCHEDULED, WILL CALL ME ONCE SCHEDULED.
[2020-09-06 16:00] VITALS: BP 115/70
[2020-09-06] MEDS: LEVOFLOXACIN 500 MG/D5W PREMIX 100 ML IV SCH (16:00)
--- NOTE | 2020-09-06 17:04 | NUR ---
BS 103, NO INSULIN COVERAGE NEEDED. ASSISTED MAITRE D TO CLEAN TURN THE PATIENT. NO ACUTE DISTRESS NOTED, WILL CONTINUE TO MONITOR.
--- NOTE | 2020-09-06 18:34 | NUR ---
[facility] ARRANGED [phone], BLS NON-EMERGENCY TRANSPORT BACK TO [facility] [place], ETA 1900 PER STUART.
--- NOTE | 2020-09-06 19:30 | NUR ---
ENDORSED PATIENT TO ROADSIDE MECHANIC RN FOR CONTINUITY OF CARE/DISCHARGE. PENDING TRANSPORT INSTRUMENT LENS GRINDER APPRENTICE.
--- NOTE | 2020-09-06 19:58 | NUR ---
PATIENT DISCHARGED TO [facility] PICKED UP BY [facility] IN STABLE CONDITION.
== END 2020-09-06 20:00 | DRG 871 ==
LOC: MED 22:58 → MTU 09-02 01:11
PROVIDERS: ADMIT Emergency Medicine; ATTEND Emergency Medicine
DX: A41.9 Sepsis, unspecified organism (principal); J18.9 Pneumonia, unspecified organism; G93.41 Metabolic encephalopathy; J96.21 Acute and chronic respiratory failure with hypoxia; N39.0 Urinary tract infection, site not specified; E44.0 Moderate protein-calorie malnutrition; Z99.11 Dependence on respirator [ventilator] status; R77.8 Other specified abnormalities of plasma proteins; E87.6 Hypokalemia; E11.9 Type 2 diabetes mellitus without complications; E03.9 Hypothyroidism, unspecified; F20.9 Schizophrenia, unspecified; J40 Bronchitis, not specified as acute or chronic; R13.10 Dysphagia, unspecified; B96.5 Pseudomonas (aeruginosa) (mallei) (pseudomallei) as the cause of diseases classified elsewhere; I08.1 Rheumatic disorders of both mitral and tricuspid valves; K72.90 Hepatic failure, unspecified without coma; D64.9 Anemia, unspecified; F29 Unspecified psychosis not due to a substance or known physiological condition; I10 Essential (primary) hypertension; G40.909 Epilepsy, unspecified, not intractable, without status epilepticus; Z86.73 Personal history of transient ischemic attack (TIA), and cerebral infarction without residual deficits; Z93.1 Gastrostomy status; Z79.899 Other long term (current) drug therapy; Z93.0 Tracheostomy status; Z68.27 Body mass index [BMI] 27.0-27.9, adult
CPT/HCPCS: 36415; 36600; 71045; 71275; 80048; 80053; 81001; 82140; 82803; 82948; 83036; 83605; 83735; 83880; 84100; 84436; 84439; 84443; 84479; 84484; 85025; 85610; 85730; 87040; 87081; 87086; 93005; 99285; J0696; J1815; J1956; J2060; J3475; J7030; J7060; Q9967

== ENCOUNTER 2021-01-15 00:10 | Inpatient (IN) | payer OTHER ==
[~2021-01-15] VITALS: Ht 182.9 cm; Wt 78.0 kg
[2021-01-15 00:10] VITALS: BP 131/56
[~2021-01-15 00:10] MED LIST: ASCO500T95 GT; ASPI-1749 GT; ATOR20TA GT; INSU100S5 IJ; KEP500L GT; LEVO0.155 GT; LISI-487 GT; OLAN2.5T1 GT; OLAN2.5T1 PO; ROCEPHIN IV; VALP-22 GT
--- NOTE | 2021-01-15 00:10 | NUR ---
[place] [facility] [place]. PT WAS DESATURATING CRUSHER OPERATOR WITH O2 SAT = 78-84 %. PT WITH TRACH AND BLOW BY O2. SUCTIONED UPON ARRIVAL, O2 SAT INCREASED TO 91 - 92 % ON 8L PMH : RF, TIA, DM II, HTN, EPILEPSY, CEREBRAL INFARCTION NKDA
[2021-01-15] MEDS ORDERED: NACL 0.9% 1,000 ML IV ONE (00:30)
[2021-01-15] MEDS ORDERED: VANCOMYCIN 1,000 MG in DEXTROSE 5% 250 ML IV ONE (00:30)
[2021-01-15] MEDS ORDERED: PIPERACILLIN/TAZOBACTAM 4.5 GM in DEXTROSE 5% 100 ML IV ONE (00:30)
--- NOTE | 2021-01-15 00:50 | NUR ---
PLACED PT ON COOL MIST AT 12L, 60% FIO2. PT TOLERATING WELL WITH IT. TRACH CARE ALSO DONE WITH NO COMPLICATIONS. WILL CONT TO MONITOR.
[2021-01-15 00:51] LABS: BASOPHILS % (AUTO) 0.2 % (0.0-2.0); EOSINOPHILS % (AUTO) 0.1 % (0.0-4.0); HEMATOCRIT 33.2 % (36-52); HEMOGLOBIN 11.1 g/dL (12.0-18.0); LYMPHOCYTES # (AUTO) 3.5 K/uL (2.0-11.5); LYMPHOCYTES % (AUTO) 42.9 % (20.5-51.1); MEAN CORPUSCULAR HEMOGLOBIN 30 pg (27-31); MEAN CORPUSCULAR HGB CONC 34 g/dL (33-37); MEAN CORPUSCULAR VOLUME 89.2 fL (80-94); MONOCYTES # (AUTO) 0.6 K/uL (0.8-1.0); NEUTROPHILS % (AUTO) 48.8 % (42.2-75.2); PLATELET COUNT (AUTO) 203 K/uL (140-450); RED BLOOD CELL COUNT(AUTO) 3.72 MIL/uL (4.20-6.10); RED CELL DISTRIBUTION WIDTH 14.6 % (11.6-13.7); WHITE BLOOD COUNT (AUTO) 8.1 K/uL (4.8-10.8)
[2021-01-15 01:06] LABS: ALBUMIN 2.6 g/dL (3.4-5.0); ANION GAP 3.9 (8-16); CARBON DIOXIDE 36.5 mmol/L (21-32); CREATININE 0.8 mg/dL (0.6-1.3); MAGNESIUM 1.7 mg/dL (1.8-2.4); POTASSIUM 3.4 mmol/L (3.5-5.1); TOTAL BILIRUBIN 0.2 mg/dL (0.0-1.0)
[2021-01-15] MEDS ORDERED: VANCOMYCIN 1,000 MG VIAL ONE (01:25)
[2021-01-15] MEDS ORDERED: PIPERACILLIN/TAZOBACTAM 2.25 GM VIAL IV ONE (01:26)
--- NOTE | 2021-01-15 02:00 | NUR ---
AWAKE CONTINUES TO ASK "WHERE IS MY RADIO'. ASSISTED WITH REPOSITIONING.SUCTIONED VIA TRACH OF MODERATE AMOUNT THICK SPUTUM.
--- NOTE | 2021-01-15 02:45 | NUR ---
STRAIGHT CATHED FOR UA
[2021-01-15 03:25] LABS: APPEARANCE,URINE SL CLOUDY (CLEAR); BILIRUBIN,URINE NEGATIVE (NEGATIVE); BLOOD, URINE NEGATIVE (NEGATIVE); COLOR,URINE YELLOW (YELLOW); LEUKOCYTE ESTERASE ,URINE 2+ (NEGATIVE); NITRITE, URINE POSITIVE (NEGATIVE); UGLUCOSE NEGATIVE (NEGATIVE)
[2021-01-15 03:34] LABS: RBC,URINE 0-5 /HPF (0-5)
[2021-01-15 03:35] LABS: WBC,URINE TOO MANY TO COUNT /HPF (0-5)
[2021-01-15] MEDS ORDERED: HYDR-4004 GT (04:18)
[2021-01-15] MEDS ORDERED: ONDA4TAB GT (04:18)
[2021-01-15] MEDS ORDERED: MELA5SGL GT (04:18)
--- NOTE | 2021-01-15 04:30 | NUR ---
AWAKE, IS RESTLESS AND PULLING AT T-TUBE. OCCASIONAL CONGESTED COUGH NOTED
--- NOTE | 2021-01-15 05:22 | NUR ---
MOVING ABOUT IN BED, ASSISTED WITH REPOSITIONING.
--- NOTE | 2021-01-15 08:24 | NUR ---
Patient will be admitted to care of Dr. Yousif. Admited to TELE. Will go to room 112B. Belongings list completed. Report to .
[2021-01-15] MEDS ORDERED: SODIUM PHOS / POTASSIUM PHOS 1 PKT PDR PO PRN (08:40)
[2021-01-15] MEDS ORDERED: MORPHINE SULFATE 2 MG/ML SYR IVP PRN (08:40)
[2021-01-15] MEDS ORDERED: DOCUSATE 100 MG/10 ML UDC GT PRN (08:40)
[2021-01-15] MEDS ORDERED: MAG SULF 2000 MG/WATER PREMIX 50 ML IV PRN (08:40)
[2021-01-15] MEDS ORDERED: HYDROcodone/APAP 5/325 MG 1 TAB TAB PO PRN (08:40)
[2021-01-15] MEDS ORDERED: ONDANSETRON 4 MG/2 ML VIAL IM/IVP PRN (08:40)
[2021-01-15] MEDS ORDERED: ACETAMINOPHEN 160 MG/5 ML UDC GT PRN (08:40)
[2021-01-15] MEDS ORDERED: VANCOMYCIN PER PHARMACY MC PRN (08:45)
--- NOTE | 2021-01-15 08:48 | NUR ---
PATIENT HAS BEEN SCREENED AND CATEGORIZED HIGH NUTRITION RISK. PATIENT WILL BE SEEN WITHIN 1-2 DAYS OF ADMISSION. 01/15/21-01/16/[address]
[2021-01-15 10:25] LABS: ANION GAP 6.8 (8-16); CARBON DIOXIDE 33.2 mmol/L (21-32); CREATININE 0.7 mg/dL (0.6-1.3)
[2021-01-15 10:30] LABS: MAGNESIUM 1.7 mg/dL (1.8-2.4); PHOSPHORUS 1.7 mg/dL (2.5-4.9)
[2021-01-15] MEDS: VALPROIC ACID 250 MG/5 ML UDC GT SCH ×3 (13:25→17:41)
[2021-01-15] MEDS: ASPIRIN 81 MG TAB.CHEW GT SCH (13:25)
[2021-01-15] MEDS: levETIRAcetam 100 MG/ML ORASYR GT SCH ×2 (13:25→21:36)
[2021-01-15] MEDS: ASCORBIC ACID 500 MG TAB GT SCH ×2 (13:26→21:36)
[2021-01-15] MEDS: LEVOTHYROXINE 0.075 MG TAB GT SCH (13:27)
[2021-01-15] MEDS: hydroCHLOROthiazide 25 MG TAB GT SCH (13:27)
[2021-01-15] MEDS: PANTOPRAZOLE 40 MG INJ VIAL IVP SCH (13:28)
[2021-01-15] MEDS: lisinopriL 20 MG TAB GT SCH (13:28)
[2021-01-15] MEDS: NACL 0.9% 1,000 ML IV SCH (13:30)
[2021-01-15] MEDS: PIPERACILLIN/TAZOBACTAM 3.375 GM in DEXTROSE 5% 50 ML IV SCH ×2 (13:31→17:41)
[2021-01-15] MEDS: VANCOMYCIN HCL 1.25 GM in DEXTROSE 5% 250 ML IV SCH (13:31)
--- NOTE | 2021-01-15 14:28 | NUR ---
01/15/21 RD INITIAL ASSESSMENT COMPLETED PLEASE REFER TO NUTRITION ASSESSMENT UNDER CARE ACTIVITY FOR ESTIMATED NUTRITIONAL NEEDS. 1. [facility] WITH SPEAKING VALVE PER RN FROM [facility] 2. RECOMMENDED SWALLOW EVALUATION 3. ASSIST PATIENT WITH MEALS, DEFLATING CUFF/USING SPEAKING VALVE 4. RD TO FOLLOW-UP 2-3 DAYS, HIGH RISK REJI PERERA RD
[2021-01-15 16:13] VITALS: BP 152/65
--- NOTE | 2021-01-15 18:50 | NUR ---
PT WAS SEEN FOR DYSPHAGIA. BLUE DYE TEST WAS DONE. PT WAS ABLE TO SAFELY SWALLOW PUREE DIET WITH THIN LIQUID. RECOMMENDATION PUREE DIET WITH THIN LIQUID
[2021-01-15 19:54] VITALS: BP 135/61
--- NOTE | 2021-01-15 20:26 | NUR ---
1999 increased fio2 to 100%. sats were 85% on 60%.sxned pt . trach care done
[2021-01-15] MEDS: ATORVASTATIN 20 MG TAB GT SCH (21:36)
[2021-01-16 00:28] VITALS: BP 134/64
[2021-01-16] MEDS: NACL 0.9% 1,000 ML IV SCH ×2 (01:29→17:46)
[2021-01-16] MEDS: VANCOMYCIN HCL 1.25 GM in DEXTROSE 5% 250 ML IV SCH ×2 (01:29→14:07)
[2021-01-16] MEDS: PIPERACILLIN/TAZOBACTAM 3.375 GM in DEXTROSE 5% 50 ML IV SCH ×5 (01:32→23:10)
[2021-01-16 06:11] VITALS: BP 142/63
[2021-01-16 07:04] LABS: BASOPHILS % (AUTO) 0.3 % (0.0-2.0); EOSINOPHILS % (AUTO) 0.1 % (0.0-4.0); HEMATOCRIT 32.6 % (36-52); HEMOGLOBIN 11.2 g/dL (12.0-18.0); LYMPHOCYTES # (AUTO) 3.4 K/uL (2.0-11.5); MEAN CORPUSCULAR HEMOGLOBIN 30 pg (27-31); MEAN CORPUSCULAR HGB CONC 34 g/dL (33-37); MEAN CORPUSCULAR VOLUME 87.5 fL (80-94); MONOCYTES # (AUTO) 0.6 K/uL (0.8-1.0); MONOCYTES % (AUTO) 8.3 % (1.7-9.3); NEUTROPHILS # (AUTO) 3.1 K/uL (1.8-7.7); NEUTROPHILS % (AUTO) 43.3 % (42.2-75.2); PLATELET COUNT (AUTO) 187 K/uL (140-450); RED BLOOD CELL COUNT(AUTO) 3.73 MIL/uL (4.20-6.10); RED CELL DISTRIBUTION WIDTH 14.6 % (11.6-13.7); WHITE BLOOD COUNT (AUTO) 7.1 K/uL (4.8-10.8)
[2021-01-16 07:08] LABS: ANION GAP 10.4 (8-16); CARBON DIOXIDE 32.5 mmol/L (21-32); CREATININE 0.7 mg/dL (0.6-1.3)
--- NOTE | 2021-01-16 07:30 | NUR ---
RECEIVED BEDSIDE REPORT FROM LAB RN NURSE FOR CONTINUITY OF CARE. PT IS A&OX1, PERIODS OF CONFUSION. TRACH TO COOL AEROSOL WITH BREATHING UNLABORED. SR ON TELE MONITORING. CONDOM CATH IN PLACE DRAINING URINE. G TUBE IN PLACE. SKIN IS WARM AND DRY. IV I SIN THE LEFT HAND 24 GAUGE AND RIGHT FOR 20 GAUGE. FLUIDS ARE INFUSING ORDERED. PT IS STABLE AT THIS TIME. PLAN OF CARE DISCUSSED. DROPLET PRECAUTIONS IN PLACE FOR PENDING COVID PCR RESULT.
--- NOTE | 2021-01-16 07:41 | NUR ---
HANDOFF WITH MANGO FIGUEROA. ROXANNE ROMAN RN
[2021-01-16 08:00] VITALS: BP 124/62
[2021-01-16 08:20] LABS: POTASSIUM 2.9 mmol/L (3.5-5.1)
--- NOTE | 2021-01-16 08:53 | NUR ---
MESSAGED DR. MEDEROS THAT A CRITICAL LAB FOR POTASSIUM CAME BACK 2.9. INFORMED HIM THAT I WILL START PRN KRIDER 40 MEQ. DOCTOR STATED THAT WAS OKAY FOR NOW.
[2021-01-16] MEDS: hydroCHLOROthiazide 25 MG TAB GT SCH (09:00)
[2021-01-16] MEDS: ASCORBIC ACID 500 MG TAB GT SCH ×2 (09:21→21:00)
[2021-01-16] MEDS: LEVOTHYROXINE 0.075 MG TAB GT SCH (09:21)
[2021-01-16] MEDS: lisinopriL 20 MG TAB GT SCH (09:21)
[2021-01-16] MEDS: PANTOPRAZOLE 40 MG INJ VIAL IVP SCH (09:21)
[2021-01-16] MEDS: ASPIRIN 81 MG TAB.CHEW GT SCH (09:21)
[2021-01-16] MEDS: levETIRAcetam 100 MG/ML ORASYR GT SCH ×2 (09:22→21:01)
[2021-01-16] MEDS: VALPROIC ACID 250 MG/5 ML UDC GT SCH ×3 (09:22→17:45)
--- NOTE | 2021-01-16 09:22 | NUR ---
NEUTRA PHOS 1 PACKET WAS GIVEN FOR PHOSPHORUS LEVEL OF 1.7. MAGNESIUM SULFATE 2 GRAM IVPB WAS GIVEN FOR MAGNESIUM LEVEL OF 1.7. PRN MEDICATIONS WERE GIVEN ORDERED.
--- NOTE | 2021-01-16 09:28 | NUR ---
SPOKE TO HENRY, SISTER, AND UPDATED HER ON THE PT. ALL QUESTIONS ANSWERED. PT IS STABLE AT THIS TIME.
[2021-01-16] MEDS ORDERED: CRUSHER, PILL MC ONE (09:36)
--- NOTE | 2021-01-16 09:52 | NUR ---
HYDROCHLOROTHIAZIDE MEDICATION WAS HELD FOR LOW POTASSIUM. POTASSIUM LEVEL IS 2.9. DR. MEDEROS WAS NOTIFIED.
[2021-01-16 12:00] VITALS: BP 149/62
--- NOTE | 2021-01-16 12:00 | NUR ---
PT HAD A BM AND WAS CHANGED. NEW DIAPER WAS PLACED. BM WAS SOFT, SOLID, AND BROWN IN COLOR. SMALL IN AMOUNT. PT ASSISTED WITH TURNING. NEW LINENS WERE PLACED AND PT WAS GIVEN A BED BATH. PT IS BACK TO SLEEP. NO DISTRESS NOTED.
[2021-01-16] MEDS: POTASSIUM CHLORIDE 40 MEQ, LIDOCAINE MPF 1% 25 MG in NACL 0.9% 250 ML IV PRN (14:08)
--- NOTE | 2021-01-16 14:08 | NUR ---
KRIDER 40 MEQ IVPB WAS STARTED FOR POTASSIUM LEVEL OF 2.9. WILL MONITOR PT. HE IS ON TELE MONITORING, SR.
[2021-01-16 16:00] VITALS: BP 158/72
--- NOTE | 2021-01-16 16:00 | NUR ---
PT WAS CHANGED AND REPOSITIONED. PT VOIDED IN DIAPER. CLEAR, YELLOW URINE NOTED. G TUBE IS IN PLACE. TRACH TO AEROSOL MIST WITH BREATHING UNLABORED. WILL CONTINUE TO MONITOR PT.
--- NOTE | 2021-01-16 17:20 | NUR ---
ROUNDED ON PT. HE IS ASLEEP. CHEST RISE AND FALL IS SYMMETRICAL. TRACH TO AEROSOL MIST WITH BREATHING UNLABORED. FLACC 0. PT IS STABLE.
--- NOTE | 2021-01-16 19:20 | NUR ---
ENDORSED PT TO PHOTOCOPY OPERATOR NURSE FOR CONTINUITY OF CARE. PT IS STABLE AT THIS TIME. PLAN OF CARE DISCUSSED.
--- NOTE | 2021-01-16 19:30 | NUR ---
RECEIVED CARE AND REPORT FROM DAYSHIFT RN. PATIENT ALERT AND ORIENTED X2 TO PERSON, PLACE, SLIGHTLY CONFUSED AT TIMES, NORMAL FOR BASELINE PER DAYSHIFT RN. PATIENT ON TRACH TO AEROSOL 12 LPM OXYGEN SATURATION 98%, RR 19, HOB 3O DEGREES, DENIES SOB, DENIES PAIN, DENIES DIFFICULTY BREATHING WHEN ASKED. NO OBVIOUS SIGNS OF DISTRESS OBSERVED WHILE AT THE BEDSIDE. PATIENT CONNECTED TO TELE MANAGER LAB, NSR. PATIENT INCONTINENT, FREQUENT HYGIENE AND CLEANING PROVIDED. PATIENT IV SITES INCLUDE LEFT HAND 24G AND RIGHT FA 20G, SITES INTACT, DRESSINGS DRY AND FLUSHING WELL. IV DRIPS RUNNING UPON ARRIVAL TO THE BEDSIDE INCLUDE NS 0.9% AT 60 ML/HR. PATIENT SKIN IS INTACT. PATIENT BED LOCKED AND LOWERED INTO A POSITION OF SAFETY. PATIENT OFFLOADED WITH USE OF PILLOWS AND FREQUENT REPOSITIONING Q2 HOURS. SAFETY MEASURES IN PLACE, NURSE CALL LIGHT REMOTE IN PATIENT HAND, EDUCATED ON HOW TO USE AND ORIENTED TO ROOM ENVIRONMENT. PROMOTING A RESTFUL HEALING ENVIRONMENT WITH DECREASED STIMULI IN THE ROOM. WILL CONTINUE TO CLOSELY MONITOR, REASSESS OFTEN AND FREQUENTLY ROUND.
[2021-01-16 20:00] VITALS: BP 150/53
[2021-01-16] MEDS: ATORVASTATIN 20 MG TAB GT SCH (20:59)
--- NOTE | 2021-01-16 21:16 | NUR ---
SCHEDULED MEDICATIONS GIVEN ORDERED BY MD, NO SIGNS OF DISTRESS OBSERVED WHILE AT THE BEDSIDE. WILL CONTINUE TO CLOSELY MONITOR AND FREQUENTLY ROUND.
--- NOTE | 2021-01-16 22:38 | NUR ---
PATIENT VOIDED AND HAD 1 LARGE BM, BROWN, SOFT, FORMED. PATIENT CLEANED, DRIED, GOWNS/LINENS CHANGED, HYGIENE, ORAL CARE PROVIDED. NO SIGNS OF DISTRESS OBSERVED WHILE AT THE BEDSIDE. SAFETY MEASURES IN PLACE. TOLERATING TRACH TO AEROSOL 12 LPM, OXYGEN SATURATION 96%. WILL CONTINUE TO CLOSELY MONITOR AND FREQUENTLY ROUND.
[2021-01-17] VITALS: BP 137/75
--- NOTE | 2021-01-17 00:02 | NUR ---
PATIENT ASLEEP, RESTING IN A POSITION OF COMFORT. NO OBVIOUS SIGNS OF DISTRESS OBSERVED WHILE AT THE BEDSIDE. PATIENT HAS SYMMETRICAL CHEST RISE AND FALL, RR 19, OXYGEN SATURATION 97%, VS STABLE, WILL CONTINUE TO CLOSELY MONITOR AND FREQUENTLY ROUND.
[2021-01-17] MEDS: VANCOMYCIN HCL 1.25 GM in DEXTROSE 5% 250 ML IV SCH ×2 (00:13→13:18)
--- NOTE | 2021-01-17 00:36 | NUR ---
SCHEDULED MEDICATIONS GIVEN ORDERED BY MD, NO SIGNS OF DISTRESS OBSERVED WHILE AT THE BEDSIDE. WILL CONTINUE TO CLOSELY MONITOR AND FREQUENTLY ROUND.
--- NOTE | 2021-01-17 02:09 | NUR ---
PATIENT RESTING IN A POSITION OF COMFORT, VS STABLE, HOB 30 DEGREES, SYMMETRICAL CHEST RISE AND FALL, RR 21, OXYGEN SATURATION 95%. NO SIGNS OF DISTRESS OBSERVED WHILE AT THE BEDSIDE, PATIENT ASKED IF HE IS OK AND PATIENT STATED, "YES, I AM FINE". WILL CONTINUE TO CLOSELY MONITOR AND FREQUENTLY ROUND.
[2021-01-17 04:00] VITALS: BP 126/60
--- NOTE | 2021-01-17 04:35 | NUR ---
MORNING CARE PROVIDED, PATIENT RESTING IN A POSITION OF COMFORT. NO OBVIOUS SIGNS OF DISTRESS OBSERVED WHILE AT THE BEDSIDE. SYMMETRICAL CHEST RISE AND FALL, RR 19, TRACH TO AEROSOL 12 LPM OXYGEN SATURATION 96%, HOB 30 DEGREES, AIRWAY OPEN, CLEAR AND MAINTAINABLE, VS STABLE. SAFETY MEASURES IN PLACE. WILL CONTINUE TO CLOSELY MONITOR AND FREQUENTLY ROUND.
[2021-01-17] MEDS: PIPERACILLIN/TAZOBACTAM 3.375 GM in DEXTROSE 5% 50 ML IV SCH ×2 (05:08→12:32)
--- NOTE | 2021-01-17 06:05 | NUR ---
SCHEDULED MEDICATION GIVEN ORDERED BY MD, NO SIGNS OF DISTRESS OBSERVED WHILE AT THE BEDSIDE. WILL CONTINUE TO CLOSELY MONITOR AND FREQUENTLY ROUND.
[2021-01-17 06:57] LABS: BASOPHILS % (AUTO) 0.1 % (0.0-2.0); HEMATOCRIT 32.8 % (36-52); LYMPHOCYTES # (AUTO) 1.8 K/uL (2.0-11.5); LYMPHOCYTES % (AUTO) 22.2 % (20.5-51.1); MEAN CORPUSCULAR HEMOGLOBIN 30 pg (27-31); MEAN CORPUSCULAR HGB CONC 34 g/dL (33-37); MEAN CORPUSCULAR VOLUME 88.4 fL (80-94); MONOCYTES # (AUTO) 0.8 K/uL (0.8-1.0); MONOCYTES % (AUTO) 9.6 % (1.7-9.3); NEUTROPHILS # (AUTO) 5.5 K/uL (1.8-7.7); NEUTROPHILS % (AUTO) 68.1 % (42.2-75.2); PLATELET COUNT (AUTO) 194 K/uL (140-450); RED BLOOD CELL COUNT(AUTO) 3.71 MIL/uL (4.20-6.10); RED CELL DISTRIBUTION WIDTH 14.7 % (11.6-13.7); WHITE BLOOD COUNT (AUTO) 8.1 K/uL (4.8-10.8)
[2021-01-17 07:02] LABS: ANION GAP 7.4 (8-16); CARBON DIOXIDE 32.8 mmol/L (21-32); CREATININE 0.5 mg/dL (0.6-1.3); POTASSIUM 3.2 mmol/L (3.5-5.1)
--- NOTE | 2021-01-17 07:30 | NUR ---
RECEIVED REPORT FROM NIGHT NURSE AT BEDSIDE FOR CONTINUITY OF CARE. REVIEWED AND WILL CONTINUE WITH POC. PT ASLEEP DURING REPORT, NURSE REPORTS PT IS AA&OX2. PT IS ON 12L TRACH TO COOL AEROSOL BREATHING NORMAL AND UNLABORED. NURSE REPORTS PT HAS BEEN SR THROUGHOUT THE NIGHT. PT IS INCONTINENT. PT HAS PATENT IV IN L-HAND 24G AND RIGHT FOREARM 20G RUNNING FLUIDS AT 60 ML/HR. PT HAS G-TUBE FOR MEDICATIONS ONLY. SKIN IS WARM DRY AND INTACT. PT CONDITION IS STABLE. PT IS ON DROPLET PRECAUTIONS.
--- NOTE | 2021-01-17 07:30 | NUR ---
REPORT AND CARE ENDORSED TO DAYSHIFT RN, VS STABLE.
[2021-01-17 08:00] VITALS: BP_SYST 115; BP_SYST 126; BP_DIAS 65; BP_DIAS 67
--- NOTE | 2021-01-17 09:30 | NUR ---
PT'S DIAPER WAS SOILED WITH URINE AND A BM. BM WAS SOLID, BROWN, AND LARGE IN AMOUNT. NEW DIAPER WAS PLACED. PT WAS GIVEN A BED BATH. LINENS WERE CHANGED. PT IS STABLE AT THIS TIME.
[2021-01-17] MEDS: levETIRAcetam 100 MG/ML ORASYR GT SCH ×2 (09:42→23:09)
[2021-01-17] MEDS: ASPIRIN 81 MG TAB.CHEW GT SCH (09:42)
[2021-01-17] MEDS: VALPROIC ACID 250 MG/5 ML UDC GT SCH ×3 (09:42→16:28)
[2021-01-17] MEDS: ASCORBIC ACID 500 MG TAB GT SCH ×2 (09:43→23:09)
[2021-01-17] MEDS: hydroCHLOROthiazide 25 MG TAB GT SCH (09:43)
[2021-01-17] MEDS: lisinopriL 20 MG TAB GT SCH (09:44)
[2021-01-17] MEDS: PANTOPRAZOLE 40 MG INJ VIAL IVP SCH (09:45)
[2021-01-17] MEDS: LEVOTHYROXINE 0.075 MG TAB GT SCH (09:45)
[2021-01-17] MEDS: POTASSIUM CHLORIDE 40 MEQ, LIDOCAINE MPF 1% 25 MG in NACL 0.9% 250 ML IV PRN (09:56)
--- NOTE | 2021-01-17 09:56 | NUR ---
KRIDER 40 MEQ WITH LIDOCAINE WAS GIVEN FOR POTASSIUM LEVEL OF 3.2. PT IS STABLE AT THIS TIME. ON TELE MONITORING.
--- NOTE | 2021-01-17 11:20 | NUR ---
PT CONDITION IS STABLE. PT AWAKE AND DENIES PAIN AT THIS TIME. PT IS ON TRACH TO COOL AEROSOL AT 12L/M. BREATHING IS NORMAL WITH SLIGHT COUGH. HE IS WARM, DRY, AND SKIN IS INTACT. WILL CONTINUE TO MONITOR.
[2021-01-17] MEDS: NACL 0.9% 1,000 ML IV SCH (11:43)
[2021-01-17 12:00] VITALS: BP 126/65
--- NOTE | 2021-01-17 13:58 | NUR ---
PT IS CURRENTLY TAKING A NAP. PT DOES NOT APPEAR TO BE IN PAIN OR DISTRESS. WILL CONTINUE TO PERFORM FREQ ROUNDING.
--- NOTE | 2021-01-17 14:24 | NUR ---
01/17/21 RD FOLLOW UP COMPLETED PLEASE REFER TO NUTRITION ASSESSMENT UNDER CARE ACTIVITY FOR ESTIMATED NUTRITIONAL NEEDS. 1. [facility] 2. PENDING SWALLOW EVALUATION 3. ASSIST PATIENT WITH MEALS 4. RD TO FOLLOW-UP 3-5 DAYS, MODERATE RISK REJI PERERA, KEN
--- NOTE | 2021-01-17 15:15 | NUR ---
PT CONDITION IS STABLE. PT AWAKE AND CALM CURRENTLY. IVF RUNNING PER MD ORDER. TRACH TO COOL AEROSOL STILL IN PLACE. PT DENIES PAIN OR DISCOMFORT AT HIS TIME.
--- NOTE | 2021-01-17 15:49 | NUR ---
SPOKE TO REP FROM [facility] INQUIRING ABOUT CONDITION OF PT. DISCUSSED THAT PT IS STABLE, PCR IS PENDING, AND THERE IS NO PLAN TO DISCHARGE.
[2021-01-17 16:00] VITALS: BP 120/72
[2021-01-17] MEDS: LEVOFLOXACIN 750 MG/D5W PREMIX 150 ML IV SCH (16:28)
--- NOTE | 2021-01-17 16:51 | NUR ---
DIALYSIS IS FINISHED. 2.7 LITERS OF FLUID OUT. PT IS STABLE AT THIS TIME. BP IS 147/71. WILL CONTINUE TO MONITOR PT. Addendum: 01/17/21 at 1652 by Loly Neal RN WRONG PT. THIS NOTE WAS FOR A DIFFERENT PT.
--- NOTE | 2021-01-17 17:30 | NUR ---
PT WAS SOILED AND DAMP FROM URINE. CHANGED PT AND GAVE SCHEDULED MEDICATIONS. PT TOLERATED CLEANING AND MEDICATION ADMINISTRATION WELL. PT DENIED ANY PAIN OR DISTRESS. WILL CONTINUE TO MONITOR.
--- NOTE | 2021-01-17 19:24 | NUR ---
GAVE CHANGE OF SHIFT REPORT TO NIGHT NURSE. DISCUSSED POC. PT CONDITION IS STABLE.
[2021-01-17 20:00] VITALS: BP 125/73
--- NOTE | 2021-01-17 20:04 | NUR ---
PT WAS SEEN AND ASSESSED. FOUND PT DISCONNECTED FROM COOL AEROSOL WITH SPO2 70s. PT WAS CONNECTED BACK TO T-PIECE COOL AEROSOL 12L AND 60%. SPO2 IMPROVED TO 96%. SUCTIONED CLEAR WHITE THIN SECRETIONS. NO RESPIRATORY DISTRESS NOTED AT THIS TIME. WILL CONTINUE TO MONITOR PT.
[2021-01-17] MEDS: ATORVASTATIN 20 MG TAB GT SCH (23:09)
[2021-01-18] MEDS: VANCOMYCIN HCL 1.25 GM in DEXTROSE 5% 250 ML IV SCH ×2 (00:45→13:11)
--- NOTE | 2021-01-18 01:25 | NUR ---
PATIENT ALERT X2 RESTING IN BED WITH NO SIGNS OF ACUTE DISTRESS.PATIENT HAS TRACH WITH 12 LITERS ARESOL FI02 20% LUNG WITH CRACKLES HAS PRODUCTIVE COUGH. NS INFUSING 60 HOUR IN LEFT HAND. HAS A 20 GA. PATIENT INC. OF URINE. HAS GT-TUBE CLAMPED PATIENT IN ISOLATION R/O COVID RIGHT NOW HIS PCR - ANOTHER ONE WAS DONE. TEMP 99.1
[2021-01-18] MEDS: NACL 0.9% 1,000 ML IV SCH ×2 (03:20→20:00)
[2021-01-18 04:00] VITALS: BP 128/73
--- NOTE | 2021-01-18 07:15 | NUR ---
ENDORSED PATIENT TO ORDER DESK CLERK RN FOR CONTINUITY OF CARE. PATIENT IS STABLE.
[2021-01-18 07:22] LABS: BASOPHILS % (AUTO) 0.3 % (0.0-2.0); EOSINOPHILS % (AUTO) 0.1 % (0.0-4.0); HEMATOCRIT 34.4 % (36-52); HEMOGLOBIN 11.4 g/dL (12.0-18.0); LYMPHOCYTES # (AUTO) 2.5 K/uL (2.0-11.5); LYMPHOCYTES % (AUTO) 35.5 % (20.5-51.1); MEAN CORPUSCULAR HEMOGLOBIN 30 pg (27-31); MEAN CORPUSCULAR HGB CONC 33 g/dL (33-37); MEAN CORPUSCULAR VOLUME 89.2 fL (80-94); MONOCYTES # (AUTO) 0.8 K/uL (0.8-1.0); MONOCYTES % (AUTO) 11.9 % (1.7-9.3); NEUTROPHILS # (AUTO) 3.7 K/uL (1.8-7.7); NEUTROPHILS % (AUTO) 52.2 % (42.2-75.2); PLATELET COUNT (AUTO) 229 K/uL (140-450); RED BLOOD CELL COUNT(AUTO) 3.85 MIL/uL (4.20-6.10); RED CELL DISTRIBUTION WIDTH 14.7 % (11.6-13.7); WHITE BLOOD COUNT (AUTO) 7.1 K/uL (4.8-10.8)
[2021-01-18 07:26] LABS: CARBON DIOXIDE 31.1 mmol/L (21-32); CREATININE 0.6 mg/dL (0.6-1.3); POTASSIUM 3.1 mmol/L (3.5-5.1)
--- NOTE | 2021-01-18 07:30 | NUR ---
RECEIVED REPORT FROM SENIOR DATA SCIENTIST RN FOR CONTINUITY OF CARE. PATIENT IS IN BED RESTING. NO S/S OF DISTRESS. ALL SAFETY PRECAUTIONS IN PLACE.
[2021-01-18 08:00] VITALS: BP 161/57
[2021-01-18] MEDS: PANTOPRAZOLE 40 MG INJ VIAL IVP SCH (09:13)
[2021-01-18] MEDS: LEVOTHYROXINE 0.075 MG TAB GT SCH (09:14)
[2021-01-18] MEDS: hydroCHLOROthiazide 25 MG TAB GT SCH (09:25)
[2021-01-18] MEDS: levETIRAcetam 100 MG/ML ORASYR GT SCH ×2 (09:25→21:15)
[2021-01-18] MEDS: VALPROIC ACID 250 MG/5 ML UDC GT SCH ×3 (09:25→17:12)
[2021-01-18] MEDS: lisinopriL 20 MG TAB GT SCH (09:25)
[2021-01-18] MEDS: ASPIRIN 81 MG TAB.CHEW GT SCH (09:26)
[2021-01-18] MEDS: ASCORBIC ACID 500 MG TAB GT SCH ×2 (09:26→21:15)
--- NOTE | 2021-01-18 12:00 | NUR ---
CHECKED ON PATIENT. PATIENT IS STABLE. NO S/S OF DISTRESS. ALL SAFETY PRECAUTIONS IN PLACE.
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
--- NOTE | 2021-01-18 17:00 | NUR ---
CHANGED PATIENT WITH FLAP MAKER ASSISTANCE. PATIENT TOLERATED MOVEMENT WELL AND ABLE TO ASSIST AND FOLLOW DIRECTION. ALL SAFETY PRECAUTIONS IN PLACE.
[2021-01-18] MEDS: LEVOFLOXACIN 750 MG/D5W PREMIX 150 ML IV SCH (17:12)
--- NOTE | 2021-01-18 19:30 | NUR ---
ENDORSED PATIENT TO CMO RN FOR CONTINUITY OF CARE. PATIENT IS STABLE.
--- NOTE | 2021-01-18 19:30 | NUR ---
RECEIVED REPORT AT BEDSIDE FROM AM NURSE. PATIENT IN BED RESTING WITH TRACH TO T-BAR. NO S/S OF RESPIRATORY DISTRESS. ALL SAFETY PRECAUTIONS ARE IN PLACE. FED PT AND WAS ABLE TO EAT 50% OF HIS DINNER. IVF INFUSING WELL ON HIS LEFT HAND. CALL LIGHT WITHIN REACH. WILL CONTINUE TO MONITOR.
[2021-01-18] MEDS: ATORVASTATIN 20 MG TAB GT SCH (21:15)
--- NOTE | 2021-01-18 21:15 | NUR ---
ADMINISTERED ALL 2100 SCHEDULED [id number]. SKIN WARM AND DRY TO TOUCH. AFEBRILE.
[2021-01-19] MEDS ORDERED: VANCOMYCIN 1,000 MG in DEXTROSE 5% 250 ML IV SCH (01:00)
--- NOTE | 2021-01-19 02:35 | NUR ---
PATIENT WITH EPISODE OF YELLING, TALKING TO HIMSELF. NEEDS ATTENDED.
[2021-01-19 04:00] VITALS: BP 148/70
--- NOTE | 2021-01-19 05:00 | NUR ---
PATIENT PULLED OUT IV LINE. INSERTED A NEW LINE ON THE LEFT FOREARM. TOLERATED WELL.
--- NOTE | 2021-01-19 07:28 | NUR ---
ENDORSED TO AM NURSE FOR CONTINUITY OF CARE. PATIENT IS STABLE
--- NOTE | 2021-01-19 07:30 | NUR ---
RECEIVED PATIENT AND REPORT FROM INTERIM CONTROLLER RN FOR CONTINUITY OF CARE. PATIENT IS RESTING IN BED. NO S/S OF DISTRESS. ALL SAFETY PRECAUTIONS IN PLACE.
[2021-01-19 08:00] VITALS: BP 134/83
[2021-01-19] MEDS: PANTOPRAZOLE 40 MG INJ VIAL IVP SCH (09:00)
[2021-01-19] MEDS: CHLORHEXADINE GLUC 2% CLOTH TP SCH (09:00)
[2021-01-19] MEDS: MUPIROCIN CA NASAL 2% 1GM TUBE NS SCH (09:00)
[2021-01-19] MEDS: ASCORBIC ACID 500 MG TAB GT SCH ×2 (09:25→22:01)
[2021-01-19] MEDS: ASPIRIN 81 MG TAB.CHEW GT SCH (09:25)
[2021-01-19] MEDS: LEVOTHYROXINE 0.075 MG TAB GT SCH (09:26)
[2021-01-19] MEDS: hydroCHLOROthiazide 25 MG TAB GT SCH (09:26)
[2021-01-19] MEDS: VALPROIC ACID 250 MG/5 ML UDC GT SCH ×3 (09:26→17:58)
[2021-01-19] MEDS: lisinopriL 20 MG TAB GT SCH (09:26)
[2021-01-19] MEDS: levETIRAcetam 100 MG/ML ORASYR GT SCH ×2 (09:27→22:01)
--- NOTE | 2021-01-19 09:35 | NUR ---
ADMINISTERED SCHEDULED MEDICATIONS. PATIENT VERBALIZED UNDERSTANDING. NO S/S OF DISTRESS. ALL SAFETY PRECAUTIONS IN PLACE.
[2021-01-19 09:54] LABS: BASOPHILS % (AUTO) 0.2 % (0.0-2.0); HEMATOCRIT 37.7 % (36-52); HEMOGLOBIN 12.4 g/dL (12.0-18.0); LYMPHOCYTES # (AUTO) 2.1 K/uL (2.0-11.5); LYMPHOCYTES % (AUTO) 23.4 % (20.5-51.1); MEAN CORPUSCULAR HEMOGLOBIN 29 pg (27-31); MEAN CORPUSCULAR HGB CONC 33 g/dL (33-37); MEAN CORPUSCULAR VOLUME 89.4 fL (80-94); MONOCYTES # (AUTO) 1.3 K/uL (0.8-1.0); MONOCYTES % (AUTO) 14.3 % (1.7-9.3); NEUTROPHILS # (AUTO) 5.6 K/uL (1.8-7.7); NEUTROPHILS % (AUTO) 62.1 % (42.2-75.2); PLATELET COUNT (AUTO) 275 K/uL (140-450); RED BLOOD CELL COUNT(AUTO) 4.22 MIL/uL (4.20-6.10)
[2021-01-19 10:03] LABS: ANION GAP 12.2 (8-16); CARBON DIOXIDE 27.9 mmol/L (21-32); CREATININE 0.8 mg/dL (0.6-1.3); POTASSIUM 3.1 mmol/L (3.5-5.1)
[2021-01-19] MEDS: NACL 0.9% 1,000 ML IV SCH (13:04)
--- NOTE | 2021-01-19 14:47 | NUR ---
SPOKE WITH PATIENT'S SISTER HENRY ON THE PHONE. I CALLED TO GIVE HER AN UPDATE. SHE VERBALIZED UNDERSTANDING AND SAID SHE WOULD STOP BY TO SEE PATIENT.
[2021-01-19 16:00] VITALS: BP 141/69
[2021-01-19] MEDS: LEVOFLOXACIN 750 MG/D5W PREMIX 150 ML IV SCH (17:58)
--- NOTE | 2021-01-19 18:11 | NUR ---
ADMINISTERED SCHEDULED MEDICATIONS. PATIENT VERBALIZED UNDERSTANDING. ALL SAFETY PRECAUTIONS IN PLACE.
--- NOTE | 2021-01-19 19:40 | NUR ---
ENDORSED PATIENT TO SEAM FELLER RN FOR CONTINUITY OF CARE. PATIENT IS STABLE.
[2021-01-19 20:00] VITALS: BP 148/75
--- NOTE | 2021-01-19 21:00 | NUR ---
RECEIVED REPORT FROM DAYSHIFT NURSE. PT STABLE CONDITION.
--- NOTE | 2021-01-19 21:00 | NUR ---
SCHEDULED MEDS GIVEN. PT TOLERATED WELL.
[2021-01-19] MEDS: ATORVASTATIN 20 MG TAB GT SCH (22:01)
[2021-01-20] VITALS (7 sets, daily range): BP systolic 98–165; BP diastolic 49–90
--- NOTE | 2021-01-20 01:45 | NUR ---
suctioned large amounts of thick yellow secretions
--- NOTE | 2021-01-20 02:15 | NUR ---
PATIENT FOUND UNRESPONSIVE. PUPIL NO REACTION TO LIGHT. HAS PALPABLE PULSE, AND 100s HR. DID STERNAL RUB.
--- NOTE | 2021-01-20 02:30 | NUR ---
NOTIFIED CHEMISTRY FACULTY MEMBER FOR PATIENT CHANGE OF CONDITION. WAITING FOR RESPONSE.
--- NOTE | 2021-01-20 02:32 | NUR ---
PT RESPONSIVE NOW. NOTIFIED THE FLAGSETTER DOCTOR.
--- NOTE | 2021-01-20 02:42 | NUR ---
0250 RAPID RESPONSE CALLED. FOUND PATIENT UNRESPONSIVE AND NOT BREATHING. PATIENT WAS BAGGED AT 100%. PATIENT HAD A HEART RATE BUT DEREK.PATIENT CAME AROUND WITH BAGGING AND PLACED ON VENT. AC 14 VT600 PEEP 5 AT 100%. PATIENT HAS A CUFFLESS TRACH SO ER DR WAS CALLED TO REPLACE TRACH. PATIENT BECAME ALERT AND IS TALKING OVER TRACH
--- NOTE | 2021-01-20 03:08 | NUR ---
0255 sputum was uptained
--- NOTE | 2021-01-20 03:40 | NUR ---
ER DR. GURROLA DID TRACH PLACEMENT. ORDERED CHEST XRAY FOR PLACEMENT.
--- NOTE | 2021-01-20 03:49 | NUR ---
DRY MOP MAKER DR. FLOWERS, RECEIVED ORDER FO VENTILATOR AND ABG BLOOD DRAW.
--- NOTE | 2021-01-20 03:50 | NUR ---
NOTIFIED SENIOR GRANTS OFFICER FOR TRACH PLACEMENT DONE BY ER DOCTOR. WAITING FOR RESPONSE.
--- NOTE | 2021-01-20 03:50 | NUR ---
CHANGED VT FROM [address] CHANGED TRACH TO CUFFED TRACH. PORTEX 8
--- NOTE | 2021-01-20 04:00 | NUR ---
ABG LABS RESULT WERE GOOD. NO ABNORMAL LEVELS TO REPORT TO MD. CONTINUE OBSERVATION.
[2021-01-20] MEDS: NACL 0.9% 1,000 ML IV SCH ×2 (05:18→21:19)
--- NOTE | 2021-01-20 06:00 | NUR ---
DIESEL LUBE TECH ORDERED CT OF THE HEAD FOR POSSIBLE SEIZURE.
[2021-01-20 07:08] LABS: CARBON DIOXIDE 29.8 mmol/L (21-32); CREATININE 0.8 mg/dL (0.6-1.3)
[2021-01-20 07:23] LABS: BASOPHILS % (AUTO) 0.3 % (0.0-2.0); EOSINOPHILS % (AUTO) 0.1 % (0.0-4.0); HEMATOCRIT 32.9 % (36-52); HEMOGLOBIN 11.1 g/dL (12.0-18.0); LYMPHOCYTES # (AUTO) 4.4 K/uL (2.0-11.5); LYMPHOCYTES % (AUTO) 29.9 % (20.5-51.1); MEAN CORPUSCULAR HEMOGLOBIN 30 pg (27-31); MEAN CORPUSCULAR HGB CONC 34 g/dL (33-37); MEAN CORPUSCULAR VOLUME 88.4 fL (80-94); MONOCYTES # (AUTO) 1.5 K/uL (0.8-1.0); NEUTROPHILS # (AUTO) 8.9 K/uL (1.8-7.7); NEUTROPHILS % (AUTO) 59.7 % (42.2-75.2); PLATELET COUNT (AUTO) 244 K/uL (140-450); RED BLOOD CELL COUNT(AUTO) 3.73 MIL/uL (4.20-6.10); RED CELL DISTRIBUTION WIDTH 15.1 % (11.6-13.7); WHITE BLOOD COUNT (AUTO) 14.9 K/uL (4.8-10.8)
--- NOTE | 2021-01-20 07:27 | NUR ---
ENDORSE PT TO DAYSHIFT NURSE FOR CONTINUITY OF CARE.
[2021-01-20 08:01] LABS: POTASSIUM 2.8 mmol/L (3.5-5.1)
--- NOTE | 2021-01-20 08:09 | NUR ---
Patient's potassium low at 2.8. Prn order administered
--- NOTE | 2021-01-20 08:10 | NUR ---
RECEIVED ON A [employer] R860 VENTILATOR PLUGGED INTO RED OUTLET TOLERATING WELL WITHOUT ADVERSE REACTIONS NOTED TO A PORTEX DFEN #8 AIRWAY SECURED WITH A NILE TRACH TIE CUFF PRESSURE CHECKED NOTED AMBU NOTED AT BEDSIDE LOC ASLEEP EASILY AWAKENS GOOD CHEST RISE DEEP TRACHEAL SUCTION FOR MODERATE SEMI THICK YELLOW SECRETIONS AIRWAY PATENT INCREASE Vt TO 525ml TO MAINTAIN EXPIRATORY Vt EQUAL OR GREATER THAN 7ml/kg (540ml)
[2021-01-20] MEDS: levETIRAcetam 100 MG/ML ORASYR GT SCH ×2 (09:55→20:51)
[2021-01-20] MEDS: ASPIRIN 81 MG TAB.CHEW GT SCH (09:57)
[2021-01-20] MEDS: ASCORBIC ACID 500 MG TAB GT SCH ×2 (09:57→20:52)
[2021-01-20] MEDS: POTASSIUM CHLORIDE 40 MEQ, LIDOCAINE MPF 1% 25 MG in NACL 0.9% 250 ML IV PRN (09:57)
[2021-01-20] MEDS: hydroCHLOROthiazide 25 MG TAB GT SCH (09:58)
[2021-01-20] MEDS: LEVOTHYROXINE 0.075 MG TAB GT SCH (09:58)
[2021-01-20] MEDS: PANTOPRAZOLE 40 MG INJ VIAL IVP SCH (09:58)
[2021-01-20] MEDS: VALPROIC ACID 250 MG/5 ML UDC GT SCH ×3 (09:58→17:24)
[2021-01-20] MEDS: lisinopriL 20 MG TAB GT SCH (09:59)
[2021-01-20] MEDS: CHLORHEXADINE GLUC 2% CLOTH TP SCH (10:00)
[2021-01-20] MEDS: MUPIROCIN CA NASAL 2% 1GM TUBE NS SCH (10:00)
--- NOTE | 2021-01-20 14:23 | NUR ---
RESTING COMFORTABLY NO APPARENT RESPIRATORY DISTRESS NOTED EQUAL CHEST RISE DEEP TRACHEAL SUCTION FOR MODERATE SEMI THICK YELLOW SECRETIONS AIRWAY PATENT SPUTUM CULTURE SPECIMEN OBTAINED FORWARDED TO LAB
--- NOTE | 2021-01-20 14:58 | NUR ---
TRANSFERRED TO RADIOLOGY FOR CT SCAN OF HEAD REMOVED FROM VENTILATOR PLACED ON SUPPLEMENTAL OXYGEN AT 15 LPM VIA E-TANK TO HME/INLINE SUCTION CATHETER/TRACHEOSTOMY TUBE AMBU BAG DEPRESSION EVERY SIX SECONDS THROUGHOUT TRANSFER AND PROCEDURE TOLERATED WELL WITHOUT COMPLICATIONS NOTED SATURATION 96%
[2021-01-20] MEDS: LEVOFLOXACIN 750 MG/D5W PREMIX 150 ML IV SCH (17:24)
--- NOTE | 2021-01-20 17:52 | NUR ---
NO DISTRESS NOTED GOOD CHEST RISE DEEP TRACHEAL SUCTION FOR MODERATE THIN YELLOW SECRETIONS AIRWAY PATENT
--- NOTE | 2021-01-20 19:35 | NUR ---
RECEIVED REPORT FORM DAY SHIFT RN PT AWAKE SITTING UP IN BED, ALERT TO NAME, SEIZURE PRECAUTIONS IN PLACE SR ON MONITOR 60-70S, PALPABLE PULSES TO BILATER UPPER EXTREM. +1 THREADY PULSES TO LOWER EXTREM. TRACH TO VENT, S/P CUFFED TRACH PLACEMENT. PT ON VC40% FIO2 TV 525 R 16 PEEP 5, MINIMAL SECRETIONS NOTED OUT OF INLINE SUCTION, FROTHY. ABD SOFT NON DISTENDED, GT IN PLACE. INCONT TO URINE AND STOOL. IV TO R AND L FA NOTED. BED LOCKED IN LOWEST POSITION, SAFETY PRECAUTIONS IN PLACE. CALL LIGHT WITHIN REACH.
[2021-01-20] MEDS: ATORVASTATIN 20 MG TAB GT SCH (20:51)
--- NOTE | 2021-01-20 22:21 | NUR ---
PT REPOSITIONED; HANDHELD RADIO PLACED NEAR BEDSIDE. NO ACUTE DISTRESS NOTED. WILL CONTINUE TO MONITOR.
[2021-01-21] VITALS: BP 115/51
--- NOTE | 2021-01-21 00:27 | NUR ---
PT HAS EYES OPEN, NO S/S OF ACUTE DISTRESS NOTED. WILL CONTINUE TO OBSERVE
[2021-01-21] MEDS: PIPERACILLIN/TAZOBACTAM 4.5 GM in DEXTROSE 5% 100 ML IV SCH ×4 (00:50→17:40)
[2021-01-21] MEDS ORDERED: PIPERACILLIN/TAZOBACTAM 4.5 GM VIAL IV ONE (00:54)
--- NOTE | 2021-01-21 03:58 | NUR ---
BATH GIVEN, LINEN CHANGED. X1 BM NOTED. PT TURNED AND REPOSITIONED. FLACC 0. WILL CONTINUE TO OBSERVE
--- NOTE | 2021-01-21 07:14 | NUR ---
REPORT GIVEN TO DAY SHIFT FOR CONTINUITY OF CARE.
--- NOTE | 2021-01-21 07:15 | NUR ---
RECEIVE REPORT FROM LOADING MACHINE OPERATOR NURSE FOR CONTINUITY OF CARE. PATIENT AWAKE. PATIENT TRACH TO VENT. NO ACUTE DISTRESS NOTED. PATIENT ON ROOM AIR. ALL SAFETY MEASURES IN PLACE. CALL LIGHT WITHIN REACH. WILL CONTINUE TO MONITOR.
[2021-01-21 07:27] LABS: ANION GAP 9.9 (8-16); CARBON DIOXIDE 31.7 mmol/L (21-32); CREATININE 0.9 mg/dL (0.6-1.3)
[2021-01-21 07:32] LABS: BASOPHILS % (AUTO) 0.2 % (0.0-2.0); HEMATOCRIT 33.1 % (36-52); LYMPHOCYTES # (AUTO) 1.8 K/uL (2.0-11.5); LYMPHOCYTES % (AUTO) 18.6 % (20.5-51.1); MEAN CORPUSCULAR HEMOGLOBIN 30 pg (27-31); MEAN CORPUSCULAR HGB CONC 33 g/dL (33-37); MEAN CORPUSCULAR VOLUME 89.8 fL (80-94); MONOCYTES # (AUTO) 0.9 K/uL (0.8-1.0); MONOCYTES % (AUTO) 8.9 % (1.7-9.3); NEUTROPHILS % (AUTO) 72.3 % (42.2-75.2); PLATELET COUNT (AUTO) 235 K/uL (140-450); RED BLOOD CELL COUNT(AUTO) 3.68 MIL/uL (4.20-6.10); RED CELL DISTRIBUTION WIDTH 15.4 % (11.6-13.7); WHITE BLOOD COUNT (AUTO) 9.7 K/uL (4.8-10.8)
[2021-01-21 07:51] LABS: MAGNESIUM 1.6 mg/dL (1.8-2.4); PHOSPHORUS 2.9 mg/dL (2.5-4.9)
[2021-01-21 07:53] LABS: POTASSIUM 2.6 mmol/L (3.5-5.1)
--- NOTE | 2021-01-21 07:53 | NUR ---
NOTIFY DR. FLOWERS ABOUT POTASSIUM LEVEL BEING 2.6. PER MD ORDERS GIVE PATIENT TWO K RIDERS. WILL CARRY OUT ORDERS.
[2021-01-21 08:00] VITALS: BP 112/59
[2021-01-21] MEDS: LEVOTHYROXINE 0.075 MG TAB GT SCH (08:20)
[2021-01-21] MEDS: hydroCHLOROthiazide 25 MG TAB GT SCH (08:20)
[2021-01-21] MEDS: ASCORBIC ACID 500 MG TAB GT SCH ×2 (08:23→20:48)
[2021-01-21] MEDS: ASPIRIN 81 MG TAB.CHEW GT SCH (08:23)
[2021-01-21] MEDS: lisinopriL 20 MG TAB GT SCH (08:23)
[2021-01-21] MEDS: PANTOPRAZOLE 40 MG INJ VIAL IVP SCH (08:23)
[2021-01-21] MEDS: VALPROIC ACID 250 MG/5 ML UDC GT SCH ×3 (08:24→17:40)
[2021-01-21] MEDS: MUPIROCIN CA NASAL 2% 1GM TUBE NS SCH (08:24)
[2021-01-21] MEDS: levETIRAcetam 100 MG/ML ORASYR GT SCH ×2 (08:24→20:48)
--- NOTE | 2021-01-21 08:24 | NUR ---
PATIENT AWAKE. PATIENT ON TRACH TO VENT. NO ACUTE DISTRESS NOTED. PATIENT SATING AT 96% O2. SCHEDULED MEDICATION GIVEN. ALL SAFETY MEASURES IN PLACE. CALL LIGHT WITHIN REACH. WILL CONTINUE TO MONITOR.
[2021-01-21 08:28] VITALS: BP 134/61
--- NOTE | 2021-01-21 08:28 | NUR ---
RECEIVED OM A [employer] R860 VENTILATOR PLUGGED INTO RED OUTLET TOLERATING WELL WITHOUT ADVERSE REACTIONS NOTED TO A PORTEX #8 AIRWAY SECURED WITH A NILE TRACH TIE CUFF PRESSURE CHECKED NOTED AMBU BAG NOTED AT BEDSIDE GOOD CHEST RISE DEEP TRACHEAL SUCTION FOR LARGE THIN YELLOW SECRETIONS AIRWAY PATENT
[2021-01-21] MEDS: CHLORHEXADINE GLUC 2% CLOTH TP SCH (08:52)
[2021-01-21] MEDS ORDERED: POTASSIUM CHLORIDE 20% 40 MEQ/15 ML UDC GT SCH (10:40)
[2021-01-21] MEDS ORDERED: MAG SULF 2000 MG/WATER PREMIX 50 ML IV SCH (10:45)
[2021-01-21] MEDS: POTASSIUM CHLORIDE 40 MEQ, LIDOCAINE MPF 1% 25 MG in NACL 0.9% 250 ML IV PRN (10:54)
--- NOTE | 2021-01-21 10:58 | NUR ---
NO DISTRESS NOTED DEEP TRACHEAL SUCTION FOR SMALL THIN YELLOW SECRETIONS AIRWAY PATENT
--- NOTE | 2021-01-21 11:57 | NUR ---
PATIENT AWAKE. PATIENT ON TRACH TO VENT. NO ACUTE DISTRESS NOTED. PATIENT SATING AT 96% O2. ALL SAFETY MEASURES IN PLACE. CALL LIGHT WITHIN REACH WILL CONTINUE TO MONITOR.
--- NOTE | 2021-01-21 13:01 | NUR ---
PATIENT SLEEPING. PATIENT EASY TO WAKE. NO ACUTE DISTRESS NOTED. PATIENT TRACH TO VENT. PATIENT 02 SATING AT 96%. CALL LIGHT WITHIN REACH. ALL SAFETY MEASURES IN PLACE. WILL CONTINUE TO MONITOR.
--- NOTE | 2021-01-21 14:07 | NUR ---
RESTING WELL NO SOB NOTED GOOD CHEST RISE AIRWAY PATENT
[2021-01-21] MEDS: NACL 0.9% 1,000 ML IV SCH (14:40)
[2021-01-21 15:25] LABS: ANION GAP 9.7 (8-16); CARBON DIOXIDE 31.8 mmol/L (21-32); CREATININE 0.9 mg/dL (0.6-1.3)
[2021-01-21 15:30] LABS: POTASSIUM 2.5 mmol/L (3.5-5.1)
--- NOTE | 2021-01-21 15:49 | NUR ---
PATIENT AWAKE. NO ACUTE DISTRESS NOTED. PATIENT ON TRACH TO VENT. PATIENT O2 SATING AT 96%. ALL SAFETY MEASURES IN PLACE. CALL LIGHT WITHIN REACH. WILL CONTINUE TO MONITOR
[2021-01-21 16:00] VITALS: BP 120/57
[2021-01-21] MEDS ORDERED: POTASSIUM CHLORIDE 40 MEQ, LIDOCAINE MPF 1% 25 MG in NACL 0.9% 250 ML IV SCH (17:00)
[2021-01-21] MEDS ORDERED: POTASSIUM CHLORIDE 40 MEQ, LIDOCAINE MPF 1% 25 MG in NACL 0.9% 250 ML IV ONE ×2 (17:40→19:00)
[2021-01-21] MEDS ORDERED: POTASSIUM CHLORIDE 20% 40 MEQ/15 ML UDC GT ONE (17:40)
[2021-01-21] MEDS ORDERED: MAG SULF 2000 MG/WATER PREMIX 50 ML IV ONE (17:40)
[2021-01-21] MEDS ORDERED: POTASSIUM CHLORIDE 20% 40 MEQ/15 ML UDC ONE (18:53)
--- NOTE | 2021-01-21 18:55 | NUR ---
PER DR. FLOWERS DO NOT ADMINISTER THIRD BAG OF KRIDER.
--- NOTE | 2021-01-21 19:15 | NUR ---
ENDORSED TO HEALTH PROFESSOR NURSE FOR CONTINUITY OF CARE. PATIENT STABLE. ALL SAFETY MEASURES IN PLACE.
--- NOTE | 2021-01-21 19:20 | NUR ---
RECEIVED REPORT FROM AISHA COBIAN FOR CONTINUITY OF CARE. PT SITTING UP AAOX1, NONVERBAL, BUT RESPONDS TO SIMPLE Y/N COMMANDS. NO APPARENT S/S OF ACUTE DISTRESS. BREATHING EVEN AND UNLABORED ON TRACH TO VENT WITH O2 SAT OF 95%. NO C/O CP, SOB OR PAIN. K-RIDER CURRENTLY INFUSING G-TUBE INTACT/PATENT WITH JEVITY1.2@30ML/HR. POC AND WHITE COMMUNICATION BOARD UPDATED. BED IN LOW/LOCKED POSITION. CALL LIGHT WITHIN REACH. PT ENCOURAGED TO CALL FOR ANY NEEDS/ASSISTANCE. WILL CONTINUE TO MONITOR.
[2021-01-21] MEDS: CIPROFLOXACIN 250 MG TAB GT SCH (20:47)
[2021-01-21] MEDS: ATORVASTATIN 20 MG TAB GT SCH (20:48)
[2021-01-22] VITALS: BP 110/51
[2021-01-22 04:39] VITALS: BP 130/54
[2021-01-22] MEDS: PIPERACILLIN/TAZOBACTAM 4.5 GM in DEXTROSE 5% 100 ML IV SCH ×5 (06:22→17:02)
--- NOTE | 2021-01-22 06:56 | NUR ---
REPORT GIVEN TO NESTOR COBIAN FOR CONTINUITY OF CARE. PT SITTING UP AAOX1. NO APPARENT S/S OF ACUTE DISTRESS. BREATHING EVEN AND UNLABORED. BED IN LOW/LOCKED POSITION. CALL LIGHT WITHIN REACH. ALL NEEDS MET AT THIS TIME.
[2021-01-22 07:03] LABS: BASOPHILS % (AUTO) 0.3 % (0.0-2.0); HEMATOCRIT 32.8 % (36-52); HEMOGLOBIN 10.9 g/dL (12.0-18.0); LYMPHOCYTES # (AUTO) 1.4 K/uL (2.0-11.5); LYMPHOCYTES % (AUTO) 23.5 % (20.5-51.1); MEAN CORPUSCULAR HEMOGLOBIN 30 pg (27-31); MEAN CORPUSCULAR HGB CONC 33 g/dL (33-37); MEAN CORPUSCULAR VOLUME 89.8 fL (80-94); MONOCYTES # (AUTO) 0.8 K/uL (0.8-1.0); MONOCYTES % (AUTO) 13.4 % (1.7-9.3); NEUTROPHILS # (AUTO) 3.9 K/uL (1.8-7.7); NEUTROPHILS % (AUTO) 62.8 % (42.2-75.2); PLATELET COUNT (AUTO) 228 K/uL (140-450); RED BLOOD CELL COUNT(AUTO) 3.65 MIL/uL (4.20-6.10); RED CELL DISTRIBUTION WIDTH 15.4 % (11.6-13.7); WHITE BLOOD COUNT (AUTO) 6.1 K/uL (4.8-10.8)
[2021-01-22 07:07] LABS: ALBUMIN 2.6 g/dL (3.4-5.0); ANION GAP 9.2 (8-16); CARBON DIOXIDE 30.8 mmol/L (21-32); MAGNESIUM 2.2 mg/dL (1.8-2.4); PHOSPHORUS 2.3 mg/dL (2.5-4.9); TOTAL BILIRUBIN 0.5 mg/dL (0.0-1.0)
--- NOTE | 2021-01-22 07:15 | NUR ---
RECEIVED CHANGE OF SHIFT REPORT AT BEDSIDE FOR CONTINUITY OF CARE. REVIEWED AND WILL CONTINUE WITH POC. PT CONDITION IS STABLE. PT IS CURRENTLY SLEEPING. WILL CONTINUE TO MONITOR.
[2021-01-22] MEDS: NACL 0.9% 1,000 ML IV SCH (07:47)
[2021-01-22] MEDS ORDERED: POTASSIUM CHLORIDE 20% 40 MEQ/15 ML UDC GT SCH (08:45)
[2021-01-22] MEDS: lisinopriL 20 MG TAB GT SCH (09:11)
[2021-01-22] MEDS: PANTOPRAZOLE 40 MG INJ VIAL IVP SCH (09:12)
[2021-01-22] MEDS: hydroCHLOROthiazide 25 MG TAB GT SCH (09:12)
[2021-01-22] MEDS: ASCORBIC ACID 500 MG TAB GT SCH ×2 (09:12→20:24)
[2021-01-22] MEDS: ASPIRIN 81 MG TAB.CHEW GT SCH (09:12)
[2021-01-22] MEDS: CIPROFLOXACIN 250 MG TAB GT SCH ×2 (09:13→20:23)
[2021-01-22] MEDS: VALPROIC ACID 250 MG/5 ML UDC GT SCH ×3 (09:13→17:02)
[2021-01-22] MEDS: levETIRAcetam 100 MG/ML ORASYR GT SCH ×2 (09:13→20:32)
--- NOTE | 2021-01-22 09:13 | NUR ---
GAVE PT SCHEDULED MEDS. PT TOLERATED WELL. PT CONDITION IS STABLE. ON TRACH TO VENT FIO2 35, PEP 5, VT 525, RT 16. PT BREATHING NORMAL WITH UNLABORED BREATHING. PT RUNNING IVF PER MD ORDER. PT ON JEVITY 1.2 AT 40 ML/HR WITH GOAL OF 50 ML/HR. WILL CONTINUE TO MONITOR.
[2021-01-22] MEDS: MUPIROCIN CA NASAL 2% 1GM TUBE NS SCH (09:17)
[2021-01-22] MEDS: LEVOTHYROXINE 0.075 MG TAB GT SCH (09:17)
[2021-01-22] MEDS: CHLORHEXADINE GLUC 2% CLOTH TP SCH (09:19)
--- NOTE | 2021-01-22 10:20 | NUR ---
CALLED PHARMACY TO ORDER POTASSIUM CHLORIDE WITH LIDOCAINE PRN FOR POTASSIUM LEVEL OF 3.0. AWAITING PHARMACY TO BRING MED.
--- NOTE | 2021-01-22 11:30 | NUR ---
PT CONDITION IS STABLE. PT AWAKE WITH RADIO IN HAND. BREATHING IS NORMAL AND UNLABORED. PT DENIES PAIN AT THIS TIME. WILL CONTINUE TO MONITOR.
--- NOTE | 2021-01-22 13:30 | NUR ---
PT IS STABLE. WILL CONTINUE TO MONITOR.
--- NOTE | 2021-01-22 14:07 | NUR ---
RECEIVED REQUEST BY DR. FLOWERS TO CHECK TUBE FEEDING ORDER.
--- NOTE | 2021-01-22 15:00 | NUR ---
01/22/21 RD FOLLOW UP COMPLETED PLEASE REFER TO NUTRITION ASSESSMENT UNDER CARE ACTIVITY FOR ESTIMATED NUTRITIONAL NEEDS. 1. RECOMMENDED GLUCERNA 1.2 @ 65 ML/HR AND FREE WATER FLUSH OF 150 ML Q4H -THIS WILL PROVIDE 1872 KCAL/DAY AND 93 GM OF PROTEIN/DAY. 2. RECOMMEND A SWALLOW EVALUATION WHEN PATIENT BECOMES MEDICALLY STABLE 3. RD TO FOLLOW-UP 2-3 DAYS, HIGH RISK REJI PERERA RD
--- NOTE | 2021-01-22 15:20 | NUR ---
PERFORMED FREQ ROUNDING. PT IS CURRENTLY TAKING A NAP. PT DOES NOT APPEAR TO BE IN DISTRESS. WILL CONTINUE TO MONITOR.
[2021-01-22 16:00] VITALS: BP 150/63
--- NOTE | 2021-01-22 17:30 | NUR ---
PT CONDITION IS STABLE. PT IS CURRENTLY AWAKE AND CALM. WILL CONTINUE TO MONITOR.
[2021-01-22] MEDS: POTASSIUM CHLORIDE 40 MEQ, LIDOCAINE MPF 1% 25 MG in NACL 0.9% 250 ML IV PRN (18:01)
--- NOTE | 2021-01-22 19:20 | NUR ---
RECEIVED REPORT FROM NESTOR COBIAN FOR CONTINUITY OF CARE. PT SITTING UP AAOX1, NONVERBAL, AROUSABLE TO VERBAL/TACTILE STIMULI, RESPONDS TO Y/N QUESTIONS AND ABLE TO MAKE BASIC NEEDS KNOWN. NO APPARENT S/S OF ACUTE DISTRESS. BREATHING EVEN AND UNLABORED ON TRACH TO VENT WITH O2 SAT OF 97%. NO C/O CP, SOB OR PAIN. R FA INTACT/PATENT. G-TUBE INTACT/PATENT WITH GLUCERNA 1.2@65ML/HR. POC AND WHITE COMMUNICATION BOARD UPDATED. BED IN LOW/LOCKED POSITION. CALL LIGHT WITHIN REACH. PT ENCOURAGED TO CALL FOR ANY NEEDS/ASSISTANCE. WILL CONTINUE TO MONITOR.
--- NOTE | 2021-01-22 19:35 | NUR ---
GAVE CHANGE OF SHIFT REPORT TO NIGHT NURSE AT BEDSIDE FOR CONTINUITY OF CARE. DISCUSSED POC. PT CONDITION IS STABLE.
[2021-01-22 20:00] VITALS: BP 121/90
[2021-01-22] MEDS: ATORVASTATIN 20 MG TAB GT SCH (20:24)
[2021-01-23] VITALS: BP 118/57
[2021-01-23] MEDS: PIPERACILLIN/TAZOBACTAM 4.5 GM in DEXTROSE 5% 100 ML IV SCH ×4 (00:14→18:17)
[2021-01-23 04:00] VITALS: BP 158/82
--- NOTE | 2021-01-23 06:57 | NUR ---
REPORT GIVEN TO DAGO COBIAN FOR CONTINUITY OF CARE. PT SITTING UP AAOX1. NO APPARENT S/S OF ACUTE DISTRESS. BREATHING EVEN AND UNLABORED. BED IN LOW/LOCKED POSITION. CALL LIGHT WITHIN REACH. ALL NEEDS MET AT THIS TIME
--- NOTE | 2021-01-23 07:30 | NUR ---
REPORT RECEIVED FROM NIGHT NURSE PT IS ON TRACH TO VENT, FIO2 32 RATE 16 PEEP 5, PT HAS G TUBE FEEDING 1.2 GLUCERNA RUNNING AT 65 ML/HR WATER FLUSH Q4H. PT HAS IV ACCESS ON RIGHT ARM 22 GAUGE, LEFT ARM ACCESS 20 GUAGE, NORMAL SALINE RUNNING AT 60 ML/HR. PT IS INCONTINENT, PLAN OF CARE DISCUSSED, WILL CONTINUE TO MONITOR PT.
--- NOTE | 2021-01-23 08:00 | NUR ---
PT US IN THE BED SLEEPING, NO SOB OR S/S OF PAIN NOTED.
[2021-01-23 08:02] LABS: BASOPHILS % (AUTO) 0.3 % (0.0-2.0); HEMATOCRIT 30.5 % (36-52); HEMOGLOBIN 10.2 g/dL (12.0-18.0); LYMPHOCYTES # (AUTO) 2.3 K/uL (2.0-11.5); LYMPHOCYTES % (AUTO) 35.4 % (20.5-51.1); MEAN CORPUSCULAR HEMOGLOBIN 30 pg (27-31); MEAN CORPUSCULAR HGB CONC 33 g/dL (33-37); MEAN CORPUSCULAR VOLUME 89.2 fL (80-94); MONOCYTES # (AUTO) 0.7 K/uL (0.8-1.0); MONOCYTES % (AUTO) 10.7 % (1.7-9.3); NEUTROPHILS # (AUTO) 3.5 K/uL (1.8-7.7); NEUTROPHILS % (AUTO) 53.6 % (42.2-75.2); PLATELET COUNT (AUTO) 202 K/uL (140-450); RED BLOOD CELL COUNT(AUTO) 3.42 MIL/uL (4.20-6.10); RED CELL DISTRIBUTION WIDTH 15.5 % (11.6-13.7); WHITE BLOOD COUNT (AUTO) 6.6 K/uL (4.8-10.8)
[2021-01-23] MEDS: ASCORBIC ACID 500 MG TAB GT SCH (08:22)
[2021-01-23] MEDS: CIPROFLOXACIN 250 MG TAB GT SCH (08:22)
[2021-01-23] MEDS: ASPIRIN 81 MG TAB.CHEW GT SCH (08:22)
[2021-01-23] MEDS: LEVOTHYROXINE 0.075 MG TAB GT SCH (08:23)
[2021-01-23] MEDS: PANTOPRAZOLE 40 MG INJ VIAL IVP SCH (08:24)
[2021-01-23] MEDS: MUPIROCIN CA NASAL 2% 1GM TUBE NS SCH (08:24)
[2021-01-23] MEDS: VALPROIC ACID 250 MG/5 ML UDC GT SCH ×3 (08:24→18:16)
[2021-01-23] MEDS: levETIRAcetam 100 MG/ML ORASYR GT SCH (08:25)
[2021-01-23] MEDS: hydroCHLOROthiazide 25 MG TAB GT SCH (08:28)
[2021-01-23] MEDS: lisinopriL 20 MG TAB GT SCH (08:28)
[2021-01-23 08:33] LABS: ALBUMIN 2.3 g/dL (3.4-5.0); ANION GAP 10.8 (8-16); CREATININE 0.9 mg/dL (0.6-1.3); PHOSPHORUS 2.8 mg/dL (2.5-4.9); TOTAL BILIRUBIN 0.3 mg/dL (0.0-1.0)
--- NOTE | 2021-01-23 08:45 | NUR ---
ADMINISTERED ALL PRESCRIBED MEDICATIONS PER MD ORDER VIA G TUBE. PT HAS VISIBLE MUCUS IN THE VENT TUBE, AND PT HAS SOB, GAVE 100% OXYGEN, AND SUCTIONED THE PT. NO SOB AFTER SUCTIONING. WILL CONTINUE TO MONITOR PT.
--- NOTE | 2021-01-23 09:50 | NUR ---
RECEIVED LAB RESULT FOR POTASSIUM 3.0. NOTIFIED DOCTOR AWAITING FOR FURTHER ORDERS.
[2021-01-23] MEDS: CHLORHEXADINE GLUC 2% CLOTH TP SCH (09:52)
--- NOTE | 2021-01-23 10:07 | NUR ---
NOTIFIED PHARMACY FOR LOW POTASSIUM LEVEL OF THE PT, AND REQUESTED THEM TO SEND POTASSIUM CHLORIDE IV FLUID, AND PHARMACIST SAID THAT SHE WILL SENT SHORTLY. WILL ADMINISTERED WHEN RECEIVE IT.
[2021-01-23] MEDS: POTASSIUM CHLORIDE 40 MEQ, LIDOCAINE MPF 1% 25 MG in NACL 0.9% 250 ML IV PRN (10:54)
--- NOTE | 2021-01-23 10:55 | NUR ---
ADMINISTERED IV POTASSIUM CHLORIDE 40 MEQ RUNNING AT 68 ML/HR PER MD ORDER. PT'S POTASSIUM LEVEL WAS 3.0. PT IS ON TELE MONITOR. WILL CONTINUE TO MONITOR PT.
[2021-01-23] MEDS ORDERED: POTA10TE30 PO (11:30)
[2021-01-23] MEDS ORDERED: CIPR250T3 GT (11:30)
[2021-01-23 11:45] LABS: POTASSIUM 2.8 mmol/L (3.5-5.1)
--- NOTE | 2021-01-23 11:47 | NUR ---
RECEIVED CRITICAL LAB VALUE OF POTASSIUM 2.8 PT IS RECEIVING IV POTASSIUM 40 MEQ AT THE MOMENT. WILL CONTINUE TO ASSESS THE PT.
--- NOTE | 2021-01-23 12:51 | NUR ---
ADMINISTERED PRESCRIBED MEDICATIONS PER MD ORDER. PT WAS SUCTIONED, PT HAS SMALL AMOUNT OF MUCUS. NO SOB NOTED.
--- NOTE | 2021-01-23 13:20 | NUR ---
PT REFUSED SUCTIONING.
[2021-01-23 14:42] VITALS: BP 131/60
--- NOTE | 2021-01-23 14:59 | NUR ---
DC PLANNING BERKLEY [place]IENT[place] CL[place]IC[place] [facility] REQUESTED BY FOR PATIENT TO RETURN TO SAME SNF AT DISCHARGE. COMPLETED CONFIRMATION OF 13:26. Addendum: 01/23/21 at 1622 by Susy Bonds DC PLANNING BERKLEY CONTACT [facility] AT [phone] SPOKE TO ROBIN TO SET UP TRANSPORT BACK TO [facility]() TODAY 19:30. ROBIN TOOK PATIENT INFORMATION AND REQUESTED TRANSPORT FORM TO BE FAX AT [phone] WITH COMPLETE CONFIRMATION AT 15:43. BERKLEY CALLED EROS AT [facility] [place] INFORM HER OF PATIENT'S TRANSPORT TIME BACK TO THEIR FACILITY 19:30. EROS AGREED. 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
--- NOTE | 2021-01-23 15:00 | NUR ---
CALLED [facility] AT [phone] AND GAVE REPORT TO EMRE ATWOOD, DISCUSSED PLAN OF CARE WITH HER AND CONTINUITY OF CARE, PT'S VENT SETTINGS WERE EXPLAINED IN DETAIL, MENTIONED TO HER THAT PT IS ON G TUBE FEEDING GLUCERNA 1.2 RUNNING AT 65 ML/HR. REPORTED THAT PT HAS HYPOKALEMIA, CONTINUE K-DUR, AND ANTIBIOTICS VIA G TUBE. ANGELIC HAVE NO FURTHER QUESTIONS. WILL TRANSFER PT VIA AMBULANCE.
--- NOTE | 2021-01-23 15:41 | NUR ---
CALLED PT'S SISTER AGGIE HENRY AT [phone] AND NOTIFIED THAT PT WILL BE TRANSFERRED TO [facility]. SHE HAS NO QUESTION WHEN NOTIFIED.
--- NOTE | 2021-01-23 16:23 | NUR ---
RECEIVED LAB RESULTS PT IS POSITIVE FOR SPUTUM PROVIDENCIA STUARTII AND PSEUDOMONAS AERUGINOSA, DOCTOR NOTIFIED, AWAITING FOR FURTHER ORDERS.
[2021-01-23] MEDS: NACL 0.9% 1,000 ML IV SCH ×2 (16:40)
[2021-01-23] MEDS ORDERED: IV Meropenam IV (17:14)
[2021-01-23] MEDS ORDERED: IV Gentamycin IV (17:15)
[2021-01-23 18:06] VITALS: BP 135/89
--- NOTE | 2021-01-23 19:25 | NUR ---
ENDORSED NIGHT NURSE FOR CONTINUITY OF CARE AND PT DISCHARGE TO THE SUB ACUTE FACILITY AROUND 8 PM.
--- NOTE | 2021-01-23 19:30 | NUR ---
RECEIVED PATIENT FROM AM NURSE FOR CONTINUITY OF CARE. PATIENT IS AWAKE, ALERT AND ORIENT X1. PATIENT ON TRACH TO VENT, NO SIGN OF DISTRESS NOTED. VENT SETTING VT 525, FIO2 32, PEEP 5, RATE 16. SKIN WARM, DRY, NON DIAPHORETIC. IV ON LEFT FA 20G, INTACT AND PATENT, SALINE LOCK. IV ON RIGHT FA 20G, INTACT AND PATENT, SALINE LOCK. G-TUBE IN PLACE, FEEDING WITH GLUCERNA 1.2 @65ML/HR, WATER FLUSH 100ML Q4HR. PATIENT TOLERATED WELL. PATIENT IS INCONTINENT. [facility] WITH NURSE IS WAITING TO TRANSFER PATIENT TO [facility]. PER AM NURSE, REPORT WAS GIVEN TO NURSE AT [facility].
--- NOTE | 2021-01-23 20:20 | NUR ---
CLEAN AND CHANGE PATIENT DIAPER. IV WERE REMOVED, BLEEDING CONTROL. ID BAND WAS REMOVED. HAND OFF REPORT GIVEN. PATIENT IS TRANSFERRING WITH [facility] AND NURSE. NO SIGN OF DISTRESS NOTED. PATIENT IS STABLE.
[2021-01-23] MEDS ORDERED: AMIKACIN PER PHARMACY MC PRN (21:05)
== END 2021-01-23 20:20 | DRG 871 ==
LOC: MED 00:10 → MTU 04:21
PROVIDERS: ADMIT Hospitalist; ATTEND Hospitalist
PROC: 5A1945Z Respiratory Ventilation, 24-96 Consecutive Hours (ICD-10-PCS; principal; 2021-01-20)
DX: A41.9 Sepsis, unspecified organism (principal); J18.9 Pneumonia, unspecified organism; E43 Unspecified severe protein-calorie malnutrition; J96.21 Acute and chronic respiratory failure with hypoxia; N39.0 Urinary tract infection, site not specified; E87.1 Hypo-osmolality and hyponatremia; G40.909 Epilepsy, unspecified, not intractable, without status epilepticus; F20.9 Schizophrenia, unspecified; B96.5 Pseudomonas (aeruginosa) (mallei) (pseudomallei) as the cause of diseases classified elsewhere; E11.9 Type 2 diabetes mellitus without complications; I10 Essential (primary) hypertension; Z20.822 Contact with and (suspected) exposure to COVID-19; E87.6 Hypokalemia; R13.10 Dysphagia, unspecified; E83.42 Hypomagnesemia; E83.39 Other disorders of phosphorus metabolism; D64.9 Anemia, unspecified; E03.9 Hypothyroidism, unspecified; Z93.1 Gastrostomy status; Z86.73 Personal history of transient ischemic attack (TIA), and cerebral infarction without residual deficits; Z93.0 Tracheostomy status; Z79.899 Other long term (current) drug therapy; Z79.82 Long term (current) use of aspirin; Z68.23 Body mass index [BMI] 23.0-23.9, adult
CPT/HCPCS: 36415; 36600; 70450; 71045; 80048; 80053; 80202; 81001; 82803; 82948; 83605; 83735; 84100; 84484; 85025; 87040; 87070; 87081; 87086; 87205; 89220; 92610; 92700; 93005; 94002; 94003; 96365; 96367; 99291; C9113; J1644; J1956; J2001; J2270; J2543; J3370; J3475; J3480; J7030; J7060; Q0092; U0003

== ENCOUNTER 2023-08-19 18:25 | Inpatient (IN) | payer OTHER ==
[~2023-08-19] VITALS: Ht 182.9 cm; Wt 79.4 kg
[~2023-08-19 18:25] MED LIST changes: +HYDR-4004 GT; -INSU100S5 IJ; +IV Gentamycin IV; +IV Meropenam IV; +MELA5SGL GT; -OLAN2.5T1 GT; -OLAN2.5T1 PO; +ONDA4TAB GT; +POTA10TA70 PO; -ROCEPHIN IV
[2023-08-19 18:37] VITALS: BP 47/15; PULSE 152; PULSE 157; RESP 20; TEMP 97.6; O2SAT 100
[2023-08-19 19:08] LABS: CALCIUM 9.4 mg/dL (8.5-10.1); CREATININE 1.5 mg/dL (0.6-1.3)
[2023-08-19 19:11] LABS: ANION GAP 19.1 (8-16)
[2023-08-19 19:13] LABS: POTASSIUM 8.1 mmol/L (3.5-5.1)
[2023-08-19] MEDS: NACL 0.9% 1,000 ML IV ONE ×2 (19:18→20:04)
[2023-08-19 19:23] LABS: ALANINE AMINOTRANSFERASE 18 U/L (12-78); ALBUMIN 2.2 g/dL (3.4-5.0); ALKALINE PHOSPHATASE 91 U/L (50-136); ASPARTATE AMINOTRANSFERASE 26 U/L (15-37); CREATINE KINASE, TOTAL 47 U/L (39-308); THYROID STIMULATING HORMONE 0.66 uIU/mL (0.34-3.74); TOTAL BILIRUBIN 0.3 mg/dL (0.0-1.0); VALPROIC ACID 30 ug/ml (50-100)
[2023-08-19 19:26] LABS: BASOPHILS % (AUTO) 0.1 % (0.0-2.0); HEMATOCRIT 21.6 % (36-52); LYMPHOCYTES # (AUTO) 1.4 K/uL (2.0-11.5); LYMPHOCYTES % (AUTO) 8.4 % (20.5-51.1); MEAN CORPUSCULAR HEMOGLOBIN 32 pg (27-31); MEAN CORPUSCULAR HGB CONC 32 g/dL (33-37); MEAN CORPUSCULAR VOLUME 99.6 fL (80-94); MONOCYTES # (AUTO) 1.2 K/uL (0.8-1.0); MONOCYTES % (AUTO) 7.3 % (1.7-9.3); NEUTROPHILS # (AUTO) 14.4 K/uL (1.8-7.7); NEUTROPHILS % (AUTO) 84.2 % (42.2-75.2); PLATELET COUNT (AUTO) 279 K/uL (140-450); RED BLOOD CELL COUNT(AUTO) 2.17 MIL/uL (4.20-6.10); RED CELL DISTRIBUTION WIDTH 16.8 % (11.6-13.7); WHITE BLOOD COUNT (AUTO) 17.1 K/uL (4.8-10.8)
[2023-08-19 19:36] LABS: HEMOGLOBIN 6.9 g/dL (12.0-18.0)
[2023-08-19 19:38] LABS: INR 1.08 (0.8-1.2); PARTIAL THROMBOPLASTIN TIME 23.4 secs (22-35.6); PROTHROMBIN TIME 11.3 secs (10.8-13.4)
[2023-08-19 19:44] LABS: LACTIC ACID 12.6 mmol/L (0.4-2.0)
[2023-08-19] MEDS: VANCOMYCIN 1,000 MG in DEXTROSE 5% 250 ML IV ONE (19:45)
[2023-08-19] MEDS ORDERED: PIPERACILLIN/TAZOBACTAM 3.375 GM VIAL IV ONE (20:09)
[2023-08-19] MEDS: PIPERACILLIN/TAZOBACTAM 3.375 GM in DEXTROSE 5% 50 ML IV ONE (20:30)
[2023-08-19] MEDS ORDERED: VANCOMYCIN 1,000 MG VIAL ONE (20:31)
[2023-08-19 21:06] LABS: FLU A ANTIGEN negative (NEGATIVE); FLU B ANTIGEN NEGATIVE (NEGATIVE); RSV NEGATIVE (NEGATIVE)
[2023-08-19] MEDS ORDERED: HYDROcodone/APAP 5/325 MG 1 TAB TAB PO PRN (21:10)
[2023-08-19] MEDS ORDERED: MORPHINE SULFATE 2 MG/ML SYR IVP PRN (21:10)
[2023-08-19] MEDS ORDERED: ONDANSETRON 4 MG/2 ML VIAL IVP PRN (21:10)
[2023-08-19] MEDS ORDERED: LORazepam 2 MG/ML VIAL IVP PRN (21:10)
[2023-08-19] MEDS ORDERED: ACETAMINOPHEN 325 MG TAB PO PRN (21:10)
[2023-08-19] MEDS ORDERED: VANCOMYCIN PER PHARMACY MC PRN (21:10)
[2023-08-19] MEDS ORDERED: DEXTROSE 50% 50 ML SYR IVP PRN (21:15)
[2023-08-19] MEDS ORDERED: INSULIN LISPRO SLIDING SCALE 100 UNITS/ML VIAL SUBQ PRN (21:15)
[2023-08-19 22:05] LABS: BLOOD GAS PCO2 39.2 mmHg (35-45); BLOOD GAS PH 7.387 (7.35-7.45); BLOOD GAS PO2 114.5 mmHg (75-100)
[2023-08-19 22:06] LABS: BLOOD GAS BASE EXCESS -1.8 mmol/L (-2.0-2.0); BLOOD GAS O2 SAT% 97.9 % (92.0-98.5)
[2023-08-19 22:15] LABS: ANION GAP 18.3 (8-16); CALCIUM 8.2 mg/dL (8.5-10.1); CARBON DIOXIDE 25.5 mmol/L (21-32); CREATININE 1.7 mg/dL (0.6-1.3)
[2023-08-19 22:18] LABS: POTASSIUM 6.8 mmol/L (3.5-5.1)
[2023-08-19] MEDS ORDERED: CALCIUM GLUCONATE 10% 1,000 MG in NACL 0.9% 50 ML IV SCH (22:28)
[2023-08-19] MEDS ORDERED: SODIUM ZIRCONIUM CYCLOSILICATE 10 GM POWD.PACK PO SCH (22:30)
[2023-08-19] MEDS ORDERED: INSULIN REGULAR, HUMAN 100 UNIT/ML VIAL IV SCH (22:30)
[2023-08-19] MEDS ORDERED: SODIUM BICARBONATE 8.4% PFS 50 MEQ/50 ML SYR IVP SCH (22:30)
[2023-08-19] MEDS ORDERED: NOREPINEPHRINE 4 MG/4 ML VIAL IV ONE (22:57)
[2023-08-19] MEDS ORDERED: NOREPINEPHRINE 4 MG in DEXTROSE 5% 250 ML IV PRN (23:00)
[2023-08-19] MEDS ORDERED: METOPROLOL 25 MG TAB GT SCH (23:30)
[2023-08-19] MEDS ORDERED: INSULIN LANTUS 100 UNITS/ML 10 ML VIAL SUBQ SCH (23:30)
[2023-08-19 23:58] VITALS: PULSE 158; O2SAT 99
[2023-08-20] VITALS (7 sets, daily range): BP systolic 62–74; BP diastolic 31–45; PULSE 135–163; RESP 20–31; TEMP 97.6; O2SAT 94–100
[2023-08-20] MEDS: NACL 0.9% 1,000 ML IV SCH (00:52)
[2023-08-20] MEDS ORDERED: ALBUTEROL SULFATE/IPRATROPIU 3 ML SOL IH SCH (01:00)
[2023-08-20] MEDS: NOREPINEPHRINE 16 MG in DEXTROSE 5% 250 ML IV PRN (02:03)
[2023-08-20] MEDS: NOREPINEPHRINE 4 MG/4 ML VIAL IV ONE (02:06)
[2023-08-20] MEDS: EPINEPHrine 1 MG/ML AMP ONE ×2 (02:30→03:00)
[2023-08-20] MEDS: EPINEPHrine 1 mg/mL 1 MG in DEXTROSE 5% 250 ML IV PRN (02:31)
[2023-08-20] MEDS: SODIUM BICARBONATE 8.4% PFS 50 MEQ/50 ML SYR IVP ONE (02:53)
[2023-08-20] MEDS: SODIUM BICARBONATE 8.4% PFS 50 MEQ/50 ML SYR IVP SCH (02:54)
[2023-08-20] MEDS ORDERED: INSULIN REGULAR, HUMAN 100 UNIT/ML VIAL IVP SCH (02:55)
[2023-08-20] MEDS ORDERED: CALCIUM GLUC 1 GM/50 mL NS BAG 50 ML IV ONE (03:04)
[2023-08-20] MEDS: PHENYLEPHRINE 10 MG/ML VIAL ONE (03:05)
[2023-08-20] MEDS: PHENYLEPHRINE 40 MG in NACL 0.9% 250 ML IV PRN (03:06)
[2023-08-20] MEDS: CALCIUM GLUCONATE 10% 1,000 MG in NACL 0.9% 50 ML IV SCH (03:10)
[2023-08-20] MEDS: VASOPRESSIN 20 UNITS/ML VIAL ONE (03:35)
[2023-08-20] MEDS: VASOPRESSIN 40 UNITS in NACL 0.9% 250 ML IV PRN (03:36)
[2023-08-20] MEDS: EPINEPHrine PFS 0.1 MG/ML SYR IVP ONE (04:19)
[2023-08-20] MEDS: AMIODARONE 150 MG/3 ML VIAL IV ONE (04:20)
[2023-08-20] MEDS ORDERED: EPINEPHrine PFS 0.1 MG/ML SYR IVP SCH (04:20)
[2023-08-20] MEDS: AMIODARONE 150 MG/3 ML VIAL IV SCH (04:21)
[2023-08-20] MEDS ORDERED: MIDAZOLAM MDV 50 MG in NACL 0.9% 40 ML IV PRN (04:55)
[2023-08-20] MEDS ORDERED: PIPERACILLIN/TAZOBACTAM 3.375 GM in DEXTROSE 5% 50 ML IV SCH (05:00)
[2023-08-20] MEDS ORDERED: SODIUM BICARBONATE 4.2% 5 MEQ/10 ML SYR IV SCH (05:15)
[2023-08-20] MEDS ORDERED: LEVOTHYROXINE 0.075 MG TAB GT SCH (06:30)
[2023-08-20] MEDS ORDERED: BLOOD GLUCOSE MONITORING 1 DEV DEV FS SCH (07:30)
[2023-08-20] MEDS ORDERED: VALPROIC ACID 250 MG/5 ML UDC GT SCH (09:00)
[2023-08-20] MEDS ORDERED: levETIRAcetam 100 MG/ML ORASYR GT SCH (09:00)
[2023-08-20] MEDS ORDERED: ASCORBIC ACID 500 MG TAB GT SCH (09:00)
[2023-08-20] MEDS ORDERED: lisinopriL 20 MG TAB GT SCH (09:00)
[2023-08-20] MEDS ORDERED: SODIUM ZIRCONIUM CYCLOSILICATE 10 GM POWD.PACK PO SCH (09:00)
[2023-08-20] MEDS ORDERED: METOPROLOL 25 MG TAB GT SCH (09:00)
[2023-08-20] MEDS ORDERED: ENOXAPARIN 40 MG/0.4 ML SYR SUBQ SCH (09:00)
[2023-08-20] MEDS ORDERED: hydroCHLOROthiazide 25 MG TAB GT SCH (09:00)
[2023-08-20] MEDS ORDERED: ASPIRIN 81 MG TAB.CHEW GT SCH (09:00)
[2023-08-20] MEDS ORDERED: ATORVASTATIN 20 MG TAB GT SCH (21:00)
[2023-08-20] MEDS ORDERED: INSULIN LANTUS 100 UNITS/ML 10 ML VIAL SUBQ SCH (21:00)
== END 2023-08-20 04:27 | DRG 871 ==
LOC: MED 18:25 → MMU 21:15 → MIC 22:16
PROVIDERS: ADMIT Family Medicine; ATTEND Family Medicine
PROC: 02HV33Z Insertion of Infusion Device into Superior Vena Cava, Percutaneous Approach (ICD-10-PCS; principal; 2023-08-19)
PROC: B548ZZA Ultrasonography of Superior Vena Cava, Guidance (ICD-10-PCS; 2023-08-19)
PROC: 5A1935Z Respiratory Ventilation, Less than 24 Consecutive Hours (ICD-10-PCS; 2023-08-19)
PROC: 05HY33Z Insertion of Infusion Device into Upper Vein, Percutaneous Approach (ICD-10-PCS; 2023-08-19)
DX: A41.9 Sepsis, unspecified organism (principal); N17.0 Acute kidney failure with tubular necrosis; R65.21 Severe sepsis with septic shock; J96.10 Chronic respiratory failure, unspecified whether with hypoxia or hypercapnia; Z20.822 Contact with and (suspected) exposure to COVID-19; I10 Essential (primary) hypertension; D64.9 Anemia, unspecified; E87.5 Hyperkalemia; E11.9 Type 2 diabetes mellitus without complications; Z79.2 Long term (current) use of antibiotics; Z79.899 Other long term (current) drug therapy; Z79.82 Long term (current) use of aspirin; Z86.73 Personal history of transient ischemic attack (TIA), and cerebral infarction without residual deficits; Z93.0 Tracheostomy status
CPT/HCPCS: 36415; 36600; 71045; 80048; 80076; 82550; 82803; 82948; 83605; 83880; 84443; 84484; 85025; 85610; 85730; 87040; 87081; 87420; 93005; 96361; 96365; 99291; J0171; J0282; J0610; J1644; J1815; J2370; J2543; J3370; J3490; J7060